=== PATIENT | male | born 1945 | race Caucasian/White ===

== ENCOUNTER 2018-06-07 16:30 | Inpatient (IN) | payer OTHER ==
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
[2018-06-07] MEDS ORDERED: NS 1,000 ML IV ONE (16:34)
[2018-06-07 16:47] LABS: PLATELET COUNT 166 10^3/uL (150-400)
[2018-06-07 17:11] LABS: INR 1.07 (0.83-1.16); PROTIME(PATIENT) 14.1 SEC (12.0-15.0)
[2018-06-07] MEDS ORDERED: ONDANSETRON 4 MG/2 ML VIAL IVP ONE ×2 (18:45→19:48)
[2018-06-07] MEDS ORDERED: ACETAMINOPHEN 325 MG TAB PO PRN (19:35)
[2018-06-07] MEDS ORDERED: traMADol 50 MG TAB PO PRN (19:39)
[2018-06-07] MEDS ORDERED: TDAP ADULT 0.5 ML INJ (BOOSTRIX) IM ONE (19:40)
--- NOTE | 2018-06-07 19:41 | GHP ---
DATE OF ADMISSION: 06/07/2018 CHIEF COMPLAINT: Left-sided head pain. HISTORY OF PRESENT ILLNESS: The patient is a 72-year-old gentleman who [place] when he was found down in the parking lot. When asked about the events, he said that he had no recollection of what happened. His was also at the bedside and said that earlier he had told her that he did recall falling, and then trying to get back up to his feet and then falling again. Apparently, the fall or falls were not witnessed by anyone. He does recall feeling light-headed and nauseated prior to falling. Per report, he was mildly confused when he arrived in the [facility] emergency department where I have now seen him. Currently, he is complaining of left-sided head pain, beginning behind his ear and traveling up to the back of his head, and he is also complaining of right shoulder and elbow pain and the inability to lift his arm off the bed. He continues to feel nauseated. He denies any other recent falls , head injuries, or weakness. He does report having some chronic right shoulder issues, and think he may have a rotator cuff problem on that side. He denies any neck pain. PAST MEDICAL HISTORY: 1. Mood disorder. 2. Osteoarthritis. PAST SURGICAL HISTORY: 1. Cholecystectomy. 2. Left total knee arthroplasty. 3. Right knee surgery. FAMILY HISTORY: His mother and brother have Crohn's disease. SOCIAL HISTORY: The patient is and lives at home with his . He admits to smoking 1 cigarette every 3-4 days; however, his reports that he smokes more frequently than this. He admits to drinking approximately 2 glasses of wine each night. He also admits to smoking marijuana occasionally, but no other recreational or illicit drugs. MEDICATIONS: Zoloft 100 mg PO daily. ALLERGIES: Sulfa. REVIEW OF SYSTEMS: GENERAL: He denies any feelings of malaise or illness, or any recent weight changes. HEAD: He denies any chronic headaches, or recent head trauma. EYES: He denies any blurry vision or double vision. EARS, NOSE, THROAT: Again, he is having pain behind his left ear. He has chronic tinnitus. He denies any hearing loss, epistaxis, rhinorrhea or sore throat. CHEST: He denies any chest pain, dyspnea on exertion, or swelling in his extremities. PULMONARY: He denies any cough, shortness of breath, or wheezing. GI: He has nausea as in HPI, but denies any vomiting, diarrhea, or abdominal pain. MUSCULOSKELETAL: He does have some osteoarthritis related joint pain. HEMATOLOGIC: He denies any easy bruising or bleeding or any fatigue. IMMUNOLOGIC: He denies any fevers or chills. ENDOCRINOLOGIC: He denies any recent weight changes, polydipsia, polyuria. He does state that he feels cold at the moment, but he does not normally have any temperature intolerance. NEUROLOGIC: He denies any weakness, numbness, seizures or other history of neurologic symptoms. PSYCHIATRIC: He denies depression. He does state he gets impatient, and that is the reason he takes Zoloft. PHYSICAL EXAMINATION: GENERAL: Patient is a well-developed, well-nourished gentleman, who is in no acute distress. VITAL SIGNS: Recorded in the emergency department, include temperature of 36.4 degrees Celsius, heart rate 57 beats per minute, respiratory rate 16 breaths per minute, blood pressure 151/ 76 mmHg. Oxygen saturation is 97% on room air. He weighs 79.4 kg. HEAD: Normocephalic. He has no visible outward signs of trauma to his head. He does have some tenderness to palpation along the left mastoid process and posterior parietooccipital scalp and does seem to have some swelling in that area as well. EYES: His conjunctivae are clear, his sclerae are nonicteric. His vision is grossly intact. EARS: He has no otorrhea or blood in his ears, and no outward signs of trauma. NOSE: He has no epistaxis or rhinorrhea. THROAT: His mucous membranes are moist. He has a small laceration on the left anterior tip of the tongue, but he denies pain there. NECK: He is wearing a cervical collar. He has no tenderness to palpation of the posterior cervical spine. CARDIOVASCULAR: He has mild sinus bradycardia. He has no edema in his extremities. PULMONARY: He has unlabored respirations and symmetric chest wall excursions. ABDOMEN: Soft, nontender, nondistended. MUSCULOSKELETAL: He has tenderness to palpation along his right glenohumeral joint. He has no outward signs of trauma in his right shoulder or any other extremities. NEUROLOGIC: He is awake, alert, and oriented to person, place, time and situation. He can correctly state his age and date. His Danae coma scale score is 15 out of 15. He has a fluent conversational speech and follows commands without difficulty. Cranial nerves: Pupils are equal, round, and reactive to light. Extraocular muscle movements are intact. Facial sensation and movements are full and symmetric. Hearing is grossly intact. Palate elevates symmetrically. Uvula cannot be clearly visualized. He has 5/5 strength in bilateral shoulder shrug and sternocleidomastoid. His tongue protrudes in the midline. Motor: He has normal tone and bulk. He has 5/5 strength in all tested muscle groups including left deltoids, bilateral biceps, bilateral triceps, bilateral wrist extensors, bilateral telegraphic typewriter operator chief, bilateral interossei, bilateral hip flexors, bilateral knee extensors, bilateral dorsiflexors, bilateral plantar flexors and bilateral extensor hallucis longus. The only exception is 2/5 strength in his right deltoid muscle with anterior arm raising; he has 5/5 strength in right deltoid with lateral arm raising. Sensation is grossly intact to light touch throughout his entire body, including arms, legs, and torso. Deep tendon reflexes: He has 2+/4 response in bilateral biceps, triceps, patellae, and Achilles. He has no clonus of the ankles, and Le sign is negative. Coordination: He has no tremor at rest or with active movements. DERMATOLOGIC: He has a laceration/abrasion on the skin overlying his right medial epicondyle. He does not have any rashes on his skin. DIAGNOSTIC DATA: Laboratory results: He has had CBC, BMP, and coagulation panel with mildly elevated glucose of 110; otherwise, all other values are normal. He also had a troponin-I level of 0.0. IMAGING: I have personally viewed images and read radiology report for CT of the head without contrast. I agree with the radiology impression including a nondisplaced skull fracture, that extends from the left skull base involving the left mastoid process and extending superiorly along the lambdoid suture into the left parietal bone. There are minimal spots of pneumocephalus in the left posterior fossa adjacent to the mastoid process, and there is also opacification of some of the mastoid air cells on the left side. There is hyperdense appearing subarachnoid hemorrhage of bilateral frontal lobes, more so on the left side, where the hemorrhage also extends into the sylvian fissure. There are no masses, infarcts, extraaxial hemorrhages, or shift. ASSESSMENT: Patient is a 72-year-old gentleman, who fell at least once or possibly twice today for unclear reasons. By report, he did have altered sensorium upon arrival to the emergency department; however, currently his cognitive function appears grossly intact. The rest of his neurological exam is unremarkable, with the exception of weakness of the right shoulder; however, he has tenderness to palpation along the joint and intact sensation and reflexes in the right arm, leading me to believe that this may be more of a musculoskeletal injury rather than neurological injury. CT scan of his head demonstrates acute subarachnoid hemorrhage of bifrontal lobes that is worse on the left side, and a left nondisplaced skull fracture that extends from the skull base to the skull vault. There are no operative indications for any of these injuries. I have discussed his injuries, prognosis, and plan with him and his . PLAN: He will be admitted to the step-down unit for neurological monitoring, including q.2 hourly vital signs and neurologic checks. He may resume normal diet as tolerated. His activity can be ad marvin with fall precautions. He will have a CT scan of his cervical spine performed in the emergency department prior to admission to exclude any fractures or other cervical spine injuries to explain his right shoulder weakness; however, he has no examination findings of cervical spine injury. Continue precautionary cervical collar until CT has been interpreted. We will continue his home dose of Zoloft. Will use PCDs or SCDs for VTE prophylaxis, but we will not use any chemo-prophylaxis due to acute intracranial hemorrhage. Will defer seizure prophylaxis at this time, as he is at low-risk for seizure. Internal medicine will be consulted for syncope evaluation. We will obtain Physical Therapy, Occupational Therapy, and Speech- Language Therapy evaluations tomorrow morning. Anticipate his hospital stay will span less than two midnights. /[id number]/MODL MTDD
[2018-06-07] MEDS ORDERED: HYDROmorphONE/DILAUDID 1 MG/ML INJ IVP ONE (19:48)
[2018-06-07] MEDS ORDERED: HYDROmorphONE/DILAUDID 1 MG/ML INJ ONE (19:50)
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
--- NOTE | 2018-06-07 21:03 | CPEKG ---
Test Reason : OPEN Blood Pressure : / mmHG Vent. Rate : 054 BPM Atrial Rate : 054 BPM P-R Int : 145 ms QRS Dur : 106 ms QT Int : 426 ms P-R-T Axes : 016 010 045 degrees QTc Int : 404 ms Sinus rhythm Atrial premature complex Low voltage, extremity leads Confirmed by Ralph Whelan ([id number]) on 06/07/2018 9:03:25 PM Referred By: Confirmed By:Ralph Whelan
[2018-06-07] MEDS: PROMETHAZINE HCL 25 MG/ML INJ IVP PRN (21:24)
[2018-06-07] MEDS: ONDANSETRON 4 MG/2 ML VIAL IVP PRN (23:45)
[2018-06-08] MEDS: ONDANSETRON 4 MG/2 ML VIAL IVP PRN ×2 (04:00→21:51)
--- NOTE | 2018-06-08 07:59 | NEUSURGPN ---
Assessment/Plan: 72 yo male with skull fracture into mastoid and bifrontal noncompressive tSAH - neuro stable - right shoulder pain, MRI shoulder results pending - C-collar cleared - repeat head CT only if clinically indicated - appreciate trauma following - ok to transfer to the floor - discharge to home once cleared by trauma/IM/ortho Discussed with Dr. Romero. Subjective: Mild headache this morning. No nausea/vomiting. Having right shoulder pain. Objective: Awake. Alert. PERRL. EOMI Facial expression symmetrical Tongue in midline Speech fluent Muscle strength full at 5/5 Sensation intact - Physician Discussed Patient with DrRaisa: Other Neurosurgery Physical Exam - Vitals, I&O, Labs I and O 06/07/18 06/08/18 06/09/18 05:59 05:59 05:59 Intake Total 1350 Output Total 325 Balance 1025 Weight 79.379 kg Intake: Oral (ml) 300 IV Infused (ml) 1050 Output: Urine (ml) 325 Urinal 325 Other: Intake Quantity Yes Sufficient Number of Stools Urinal 0 Vital Signs Temp Pulse Resp BP Pulse Ox 36.9 C 64 18 135/70 H 95 06/08/18 07:38 06/08/18 07:38 06/08/18 07:38 06/08/18 07:38 06/08/18 07:38 ICD10 Worksheet Patient Problems: Problems Problem Status Onset Skull fracture Acute Subarachnoid hemorrhage Acute Primary osteoarthritis of left knee Acute
[2018-06-08] MEDS: SERTRALINE HCL 100 MG TAB PO SCH (09:00)
[2018-06-08] MEDS: PROMETHAZINE HCL 25 MG/ML INJ IVP PRN ×2 (09:00→20:49)
--- NOTE | 2018-06-08 14:12 | SOAPPROG ---
RAMSES Progress Note Assessment/Plan: Assessment: right shoulder sprain with chronic rotator cuff tear Plan: I have reviewed the patient's mri. the features are consistent with a chronic rtc tear and deficiency. He has a large tear with proximal migration of the humeral head into a subacromial position. there is no acute fx, or edema along the rtc or bony insertion. There is no edema to suggest an acute process within the shoulder. I would recommend PT for mobility and strengthening as he tolerates. he may f/ u as an outpatient for evaluation and discussion of his rtc tear. I would initially treat this conservatively and only surgically if he fails. 06/08/18 14:08 Objective: Vital Signs Temp Pulse Resp BP Pulse Ox 36.9 C 64 18 135/70 H 95 06/08/18 07:38 06/08/18 07:38 06/08/18 07:38 06/08/18 07:38 06/08/18 07:38 06/07/18 06/08/18 06/09/18 05:59 05:59 05:59 Intake Total 1350 Output Total 325 Balance 1025 PT 14.1 SEC (12.0-15.0) 06/07/18 16:31 INR 1.07 (0.83-1.16) 06/07/18 16:31 ICD10 Worksheet Patient Problems: Problems Problem Status Onset Skull fracture Acute Subarachnoid hemorrhage Acute Primary osteoarthritis of left knee Acute
--- NOTE | 2018-06-08 14:13 | PDIAF ---
- Diagnosis Diagnosis: head injury, chronic right rtc tear Code Status: Full Code - Medication Management Discharge Medications: electronically signed and located in the Home Medication List. - Orders Additional Instructions: right shoulder rom as kuldeep wbat sling for comfort prn ice prn f/u upon discharge to [facility] [place] [facility]o call for appt - Follow Up Care Current Providers and Referrals: Angella Fraser MD [Primary Care Provider] - As per Instructions Wilman Morrell MD [Medical Doctor] -
[2018-06-08] MEDS ORDERED: BISACODYL 10 MG SUPP PR PRN (14:27)
[2018-06-08] MEDS ORDERED: MAGNESIUM HYDROXIDE 30 ML UDCUP PO PRN (14:27)
[2018-06-08] MEDS ORDERED: POLYETHYLENE GLYCOL 3350 17 GM PKT PO PRN (14:27)
[2018-06-08] MEDS ORDERED: LACTULOSE 20 GM/30 ML UDCUP PO PRN (14:27)
--- NOTE | 2018-06-08 15:21 | PDHOSCONS ---
History and Physical - Chief Complaint syncope x2 - History of Present Illness 72 yo male with h/o depression presented to ED via EMS after he was found down [place]. He was hitting some golf balls yesterday and began to feel nauseous and lightheaded. He decided to go home. As he was packing up his golf clubs, he passed out. He was able to rise to his feet, but his symptoms persisted and he passed out again near the curb. The golf club staff found him down and placed him on O2. He regained consciousness and was transported to the ED. He denied any preceding CP, SOB or heart palpitations. He also denies any alcohol or drug use prior to the event. He has remained chest pain free. He did travel from [place] in 04/2018. No prior h/o clots. He denies any cardiac history. 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 In the ED, CT of his head showed a skull fracture with b/l frontal lobe SAH. Neurosurgery was contacted and he was admitted to the ICU for further management. Medicine is consulted for further evaluation of his syncope. History Information - Allergies/Home Medication List Allergies/Adverse Reactions: Sulfa (Sulfonamide Antibiotics) Allergy (Severe, Verified 01/06/16 10:13) Swelling/neck,face,throat Home Medications: Sertraline HCl [Zoloft 50mg (*)] 100 mg PO DAILY 12/31/15 [Last Taken 06/07/18] I have personally reviewed and updated: family history, medical history, social history, surgical history - Past Medical History Additional medical history: Sleep apnea, intolerant of CPAP. Depression. Osteoarthritis - Surgical History Reports: cholecystectomy Additional surgical history: b/l knee surgery - Family History Additional family history: mom and brother with crohn's. no family h/o clotting disorder or DE - Social History Smoking Status: Current some day smoker (smokes 1-2 cigarettes a week) Tobacco Use: Other Alcohol Use: Other (daily, 2 drinks) Drug Use: None Additional social history: , at bedside. Lives independently, retired. Review of Systems Review of Systems: ROS: 10pt was reviewed & negative except for what was stated in HPI & below Physical Exam Physical Exam: Temp Pulse Resp BP Pulse Ox 36.9 C 64 18 135/70 H 95 06/08/18 07:38 06/08/18 07:38 06/08/18 07:38 06/08/18 07:38 06/08/18 07:38 O2 (L/minute) 2 Constitutional: no apparent distress Eyes: PERRL Ears, Nose, Mouth, Throat: moist mucous membranes Cardiovascular: regular rate and rhythym, no murmur, rub, or gallop, other (no carotid bruits) Respiratory: no respiratory distress, clear to auscultation Gastrointestinal: normoactive bowel sounds, soft, non-tender abdomen Skin: warm Musculoskeletal: other (RUE with decreased ROM 2/2 pain) Neurologic: AAOx3 Psychiatric: interacting appropriately Lab Data & Imaging Review 06/07/18 16:31 06/07/18 16:31 WBC 7.18 10^3/uL (3.80-9.50) 06/07/18 16:31 RBC 4.89 10^6/uL (4.40-6.38) 06/07/18 16:31 Hgb 15.8 g/dL (13.7-17.5) 06/07/18 16:31 Hct 44.2 % (40.0-51.0) 06/07/18 16:31 MCV 90.4 fL (81.5-99.8) 06/07/18 16:31 MCH 32.3 pg (27.9-34.1) 06/07/18 16:31 MCHC 35.7 g/dL (32.4-36.7) 06/07/18 16:31 RDW 13.4 % (11.5-15.2) 06/07/18 16:31 Plt Count 166 10^3/uL (150-400) 06/07/18 16:31 MPV 9.7 fL (8.7-11.7) 06/07/18 16:31 Neut % (Auto) 55.0 % (39.3-74.2) 06/07/18 16:31 Lymph % (Auto) 33.7 % (15.0-45.0) 06/07/18 16:31 Hamlin % (Auto) 7.5 % (4.5-13.0) 06/07/18 16:31 Eos % (Auto) 2.8 % (0.6-7.6) 06/07/18 16:31 Baso % (Auto) 0.4 % (0.3-1.7) 06/07/18 16:31 Nucleat RBC Rel Count 0.0 % (0.0-0.2) 06/07/18 16:31 Absolute Neuts (auto) 3.95 10^3/uL (1.70-6.50) 06/07/18 16:31 Absolute Lymphs (auto) 2.42 10^3/uL (1.00-3.00) 06/07/18 16:31 Absolute Monos (auto) 0.54 10^3/uL (0.30-0.80) 06/07/18 16: Absolute Eos (auto) 0.20 10^3/uL (0.03-0.40) 06/07/18 16:31 Absolute Basos (auto) 0.03 10^3/uL (0.02-0.10) 06/07/18 16: Absolute Nucleated RBC 0.00 10^3/uL (0-0.01) 06/07/18 16:31 Immature Gran % 0.6 % (0.0-1.1) 06/07/18 16: Immature Gran # 0.04 10^3/uL (0.00-0.10) 06/07/18 16:31 PT 14.1 SEC (12.0-15.0) 06/07/18 16:31 INR 1.07 (0.83-1.16) 06/07/18 16:31 APTT 25.1 SEC (23.0-38.0) 06/07/18 16:31 Sodium 142 mEq/L (135-145) 06/07/18 16:31 Potassium 4.4 mEq/L (3.5-5.2) 06/07/18 16:31 Chloride 109 mEq/L (97-110) 06/07/18 16:31 Carbon Dioxide 22 mEq/l (22-31) 06/07/18 16:31 Anion Gap 11 mEq/L (6-14) 06/07/18 16:31 BUN 21 mg/dL (7-23) 06/07/18 16:31 Creatinine 1.2 mg/dL (0.7-1.3) 06/07/18 16:31 Estimated GFR 60 06/07/18 16:31 Glucose 110 mg/dL (70-100) H 06/07/18 16:31 Calcium 9.9 mg/dL (8.5-10.4) 06/07/18 16:31 POC Troponin I 0.00 ng/mL (0.00-0.08) 06/07/18 16:41 Visualized and Interpreted EKG results: Yes EKG Interpretation: Positive for: normal sinsus rhythm, NS ST wave abnormalities Assessment & Plan Assessment: 72 yo male with h/o depression and LOLA presents to ED after 2 syncopal events, found to have SAH. Syncope - prodromal symptoms included nausea and lightheadedness. Some concern for cardiac arrhythmia, note mild bradycardia on admission EKG, though HR in the 60's on tele. Trop is negative, EKG non-ischemic, chest pain free. I do not detect carotid bruits and suspect carotid artery u/s would be low yield. -check orthostatic vitals -cont telemetry monitoring -check echo -check d dimer, if elevated proceed with CTA -recommend outpt cardiac event monitor if no etiology identified here Skull fracture with SAH b/l frontal lobes - neurosurgery following, no surgical intervention planned -neurochecks, fall precautions, PT/OT Rotator cuff injury - ortho evaluated and suspects this is chronic in nature with likely acute sprain from fall, recommends conservative therapy for now -sling for comfort -pain control -outpt f/u with ortho for consideration of surgical repair Depression - cont Zoloft LOLA - recommend outpt f/u with sleep medicine to re-consider / troubleshoot CPAP issues Full code DVT PPLX- no pharm with ICH, SCD's Thank you for this consultation. Medicine will continue to follow while inpt. Please call with questions.
[2018-06-08] MEDS: oxyCODONE IR 5 MG TAB PO PRN ×4 (15:25→21:52)
[2018-06-08] MEDS: SENNOSIDES/DOCUSATE SODIUM TAB PO SCH ×2 (15:26→20:50)
[2018-06-08] MEDS ORDERED: IOPAMIDOL (ISOVUE 370) 100 ML BTL IV ONE (16:05)
--- NOTE | 2018-06-08 16:08 | ECHO ---
[email or web address] [address] [address] Main: [phone] Fax: [email or web address] Echocardiogram Name: SANDEEP WEISS MR#: [id number] Study Date: 06/08/2018 Study Time: 03:18 PM Date of : 1945 Age: 72 year(s) Height: 177.8 cm (70 in.) Weight: 83.46 kg (184 lb.) BSA: 2.01 m2 Gender: Male Examination: Echo Indication: SAH, Cardiac: syncope Image Quality: Contrast: Requested by: Kirsten Hurley BP: 135 mmHg/70 mmHg Heart Rate: Rhythm: Normal sinus rhythm Indication: SAH, Cardiac: syncope Procedure Staff Crap Game Box Person: Ramirez Forbes RDCS Reading Physician: Amira Morrow MD Requesting Provider: Conclusions: Normal size left ventricle. No LV hypertrophy. Normal global systolic LV function. EF is 66 %. No regional wall motion abnormality. Normal size right ventricle. Normal RV function. Trivial to mild mitral regurgitation. Mild aortic valve regurgitation is present. Trivial tricuspid valve regurgitation. The pulmonary artery pressure is normal. No pericardial effusion. There is no previous echocardiogram for comparison. Measurements: Chambers Valvular Assessment AV/MV Valvular Assessment TV/PV Normal Normal Normal Name Value Range Name Value Range Name Value Range Ao Adela (MM): 3.7 cm (2.2 cm-3.7 AV Vmax: 1.37 m/s (1 m/s-1.7 TR Vmax: 2.35 mm/s ( - ) cm) m/s) TR PGmax: 22 mmHg ( - ) IVSd (2D): 0.9 cm (0.6 cm-1.1 AV maxP mmHg ( - ) syst. PAP: 27 mmHg ( - ) cm) AV meanP mmHg ( - ) PV Vmax: 0.87 m/s (0.6 m/s-0.9 LVDd (2D): 4.4 cm (4.2 cm-5.9 LVOT Vmax: 1.05 m/s (0.7 m/s-1.1 m/s) cm) m/s) PV PGmax: 3 mmHg ( - ) LVDs (2D): 2.8 cm (2.1 cm-4 JEFF (Vmax): 2.7 cm2 ( - ) cm) JEFF (VTI): 2.5 cm ( - ) LVPWd (2D): 1.0 cm (0.6 cm-1 AR (PHT): 794 ms ( - ) cm) MV E Vmax: 0.53 m/s ( - ) LVOTd 2.1 cm 2.1 cm mm MV A Vmax: 0.60 m/s ( - ) LVEF (2D): 66 (>=54 %) MV E/A: 0.88 ( - ) Patient: SANDEEP WEISS Study Date: 06/08/2018 Page 1 of 2 03:18 PM MV meanP mmHg ( - ) MVA (Vmax): 4.3 m/s ( - ) Continued Measurements: Chambers Valvular Assessment AV/MV Valvular Assessment TV/PV Name Value Name Value Name Value LADs Lon.0 cm MV E' Septal: 0.06 m/s CVP (est.): 5 mmHg LA Area: 18.3 cm2 MV E/E' Septal: 9.40 LA Volume: 49 ml MV E/E' Lateral: 5.40 LA Volume Index: 24.4 ml/m2 MV VTI: 15.80 cm AR Vmax: 4.32 cm/s AR ERO: 0.060 cm2 AR PISA radius: 0.4 cm AR Reg. Volume: 13.0 ml AR Reg. Fraction: 19 % AR VTI: 218.0 cm Findings: Left Ventricle: Normal size left ventricle. No LV hypertrophy. Normal global systolic LV function. EF is 66 %. No regional wall motion abnormality. Grade 1 diastolic dysfunction (abnormal relaxation). Right Ventricle: Normal size right ventricle. Normal RV function. Left Atrium: The left atrium is normal in size. Right Atrium: The right atrium is normal in size. Mitral Valve: The mitral valve is normal in appearance. Trivial to mild mitral regurgitation. Aortic Valve: The aortic valve is tri-leaflet. Mild aortic valve regurgitation is present. Tricuspid Valve: The tricuspid valve appears normal. Trivial tricuspid valve regurgitation. The pulmonary artery pressure is normal. Pulmonic Valve: The pulmonic valve is normal in appearance and function. Aorta: The aorta is normal. Pericardium: No pericardial effusion. Exam Comments: (No Signature Object) Patient: SANDEEP WEISS Study Date: 06/08/2018 Page 2 of 2 03:18 PM [id number]
[2018-06-08] MEDS: ACETAMINOPHEN 500 MG TAB PO SCH (17:17)
--- NOTE | 2018-06-08 17:27 | PDMN ---
Medical Necessity Medical necessity: Pt meets INPT criteria per MD as of 06/08/18 and [facility] (est. LOS >2 MN for ongoing eval/mgmt of skull fracture with SAH, syncopal events, rotator cuff injury; comorbid depression, LOAL).
--- NOTE | 2018-06-08 18:36 | TRAUMAPNT ---
Trauma Tertiary Progress Note New Findings: Right rotator cuff tear, partial tear of right elbow tendons. Discussed with Dr. Morrell. PT recommended & follow-up as an outpatient. Repeat CT head unchanged. CTA of chest demonstrates no pulmonary embolism Assessment/Plan: 72-year-old gentleman with unwitnessed fall or syncope with bilateral subarachnoid hemorrhage nondisplaced skull fracture. Patient also has ligamentous injuries of his right shoulder and elbow. Admitted to Neurosurgery at this time with internal medicine consultation. Orthopedic consultation by Dr. Morrell suggest non operative care of acute on chronic ligamentous injury to his shoulder. PT and follow up as an outpatient recommended No new injuries detected on further imaging or clinical exam Alert oriented to person place and time Amnestic to event Regular rate and rhythm Clear to auscultation Abdomen soft nontender nondistended Good database management specialist strength right upper extremity. Shoulder in a sling for comfort. Reports of loss of sensation earlier. Now says this is less of an issue. No significant multi-system injuries noted at this time will continue medicine workup for syncope and neurosurgery monitoring for neurologic changes from his bilateral subarachnoid hemorrhage left greater than right. Trauma surgery will sign off at this time call with any concerns regarding involving trauma issues Objective: Vital Signs Temp Pulse Resp BP Pulse Ox 36.9 C 63 18 117/74 93 06/08/18 16:00 06/08/18 16:00 06/08/18 16:00 06/08/18 16:00 06/08/18 16:00 06/07/18 06/08/18 06/09/18 05:59 05:59 05:59 Intake Total 2100 Balance 2100 PT 14.1 SEC (12.0-15.0) 06/07/18 16:31 INR 1.07 (0.83-1.16) 06/07/18 16:31
[2018-06-08] MEDS ORDERED: SENNOSIDES/DOCUSATE SODIUM TAB PO SCH (21:00)
[2018-06-09] MEDS: ACETAMINOPHEN 500 MG TAB PO SCH ×2 (02:08→07:56)
[2018-06-09] MEDS: oxyCODONE IR 5 MG TAB PO PRN ×3 (06:28→13:11)
[2018-06-09] MEDS: SERTRALINE HCL 100 MG TAB PO SCH (07:57)
[2018-06-09] MEDS: SENNOSIDES/DOCUSATE SODIUM TAB PO SCH (07:57)
[2018-06-09] MEDS: PROMETHAZINE HCL 25 MG/ML INJ IVP PRN (07:58)
--- NOTE | 2018-06-09 08:28 | SOAPPROG ---
RAMSES Progress Note Assessment/Plan: Assessment: right shoulder sprain with chronic rotator cuff tear right elbow sprain with chronic common extensor and flexor tendonitis Plan: additionally, i have reviewed mri of his elbow as well which also demonstrates an acute sprain on top of chronic injuries. he may use his elbow as tolerated. in light of his acute head injuries, no acute surgical intervention is recommended for either his shoulder or his elbow. I will speak with the patient later today and discuss this. He will be recommended to f/u outpatient for a trial of conservative PT initially. If he fails this he may become a surgical candidate. 06/08/18 14:08 06/09/18 08:25 Objective: Vital Signs Temp Pulse Resp BP Pulse Ox 36.6 C 56 L 14 129/70 H 97 06/09/18 04:00 06/09/18 04:00 06/09/18 04:00 06/09/18 04:00 06/09/18 04:00 06/08/18 06/09/18 06/10/18 05:59 05:59 05:59 Intake Total 2100 Balance 2100 PT 14.1 SEC (12.0-15.0) 06/07/18 16:31 INR 1.07 (0.83-1.16) 06/07/18 16:31 ICD10 Worksheet Patient Problems: Problems Problem Status Onset Skull fracture Acute Subarachnoid hemorrhage Acute Primary osteoarthritis of left knee Acute
[2018-06-09 08:54] VITALS: BP 124/67
--- NOTE | 2018-06-09 09:47 | SOAPPROG ---
SOAP Progress Note Assessment/Plan: Assessment: 72 yo M with tsah and mastoid fx after fall Plan: stable, headaches improving Q4 hour neuro checks PT/OT/ST Hospitalists working up syncope right shoulder injury, fu with Dr Morrell as outpatient ok to transfer to floor or dc if cleared by Trauma, Ortho and Hospitalists please call with neuro changes 06/09/18 09:45 Subjective: mild headache, no N/V. No weakness. Objective: Vital Signs Temp Pulse Resp BP Pulse Ox 36.7 C 56 L 15 124/67 H 94 06/09/18 08:00 06/09/18 04:00 06/09/18 08:00 06/09/18 08:00 06/09/18 08:00 06/08/18 06/09/18 06/10/18 05:59 05:59 05:59 Intake Total 2100 Balance 2100 PT 14.1 SEC (12.0-15.0) 06/07/18 16:31 INR 1.07 (0.83-1.16) 06/07/18 16:31 AAOx4, +FC PERRL, EOMI, no facial droop 5/5 + light touch ICD10 Worksheet Patient Problems: Problems Problem Status Onset Skull fracture Acute Subarachnoid hemorrhage Acute Primary osteoarthritis of left knee Acute
--- NOTE | 2018-06-09 10:12 | ASMTCMCOM ---
CM Note CM Note Notes: Patient had an unwitnessed fall or syncope that resulted in bilateral SAH and non-displaced skull fx. Also suffered tears of R rotator cuff and elbow tendons. Ortho and neuro have seen - no surgery recommended. Outpatient therapy recommended. Patient lives with and is normally independent. Case Management will follow for any d/c needs. Date Signed: 06/09/2018 10:12 AM Electronically Signed By:Theresa Owusu RN
--- NOTE | 2018-06-09 13:05 | GDS ---
DIAGNOSES: 1. Subarachnoid hemorrhage and mastoid fracture after fall. Follow up with Neurosurgery per their recommendations. 2. Shoulder injury, status post fall. He will follow up as an outpatient with Dr. Morrell and do a trial of conservative physical therapy initially. 3. Syncope versus mechanical fall. CONSULTATIONS: Include Neurosurgery, Orthopedics, Trauma, Cardiology. PROCEDURES: 1. Head computed tomography. Acute nondisplaced left skull base fracture, minimal pneumocephalus, subarachnoid hemorrhage along bilateral frontal lobes. 2. Cervical spine computed tomography. No acute cervical spine fracture. Multilevel degenerative joint disease. 3. Upper extremity magnetic resonance imaging. 4. Chest and thoracic computed tomography angiogram which shows no pulmonary embolism. 5. Echocardiogram showing no significant abnormalities. HOSPITAL COURSE: Mr. Jasso is a very healthy 72-year-old man who was playing golf/hitting golf balls at the driving range with his grandchildren. He said he had not been feeling ill, and was out there for 1-2 hours with his grandkids when he started to feel a little bit nauseous. He got in the golf cart, drove back to his car, put the golf clubs away and was in the process of driving the golf cart back to the facility when he fell out of the golf cart and sustained injuries to his head and shoulder. He thinks he may have hit the curb or something and gotten thrown out of the golf cart; however, it is unclear. They were able to wake him up, and he got up, tried to get back in the golf cart and fell again at which point he was transported to the emergency department for further evaluation and the above procedures. Regarding his subarachnoid hemorrhage, he was seen by neurosurgery, Dr. Browne, who felt that this could be monitored. He was monitored closely in the intensive care unit and will follow up with Neurosurgery as an outpatient without further surgical intervention. He also sustained a shoulder injury, had an upper extremity MRI done, and was seen by Dr. Morrell who will follow up with him as an outpatient. Regarding his fall/syncope, it is of unclear etiology. I did have Cardiology see the patient prior to discharge just to review the testing done, his EKG and telemetry, and at this point they would like to complete his workup with an outpatient Holter/event monitor. That has been set up at [facility] on Monday. In the meantime, the patient will need a few oxycodone for headache pain and shoulder pain. He is to follow up with his primary care provider next week. MEDICATIONS ON DISCHARGE: Please see med reconciliation form. He will continue his sertraline and was given a small supply of oxycodone for pain. PLAN: He is to follow up with Dr. Morrell, with Dr. Angella Fraser, Dr. Ralph Layne. 35 minutes spent on discharge and coordination of care. /[id number]/MODL MTDD
--- NOTE | 2018-06-10 00:18 | GCON ---
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 HISTORY OF PRESENT ILLNESS: Thom was in his usual state of health when he experienced sudden onset of nausea and diaphoresis in the midst of golfing . He immediately made the decision to head home at that time, but he reports running into a curb or other object while driving the golf cart. He reports feeling notably drowsy and "fell" from the golf cart per his recollection. He remembers awaking to find several people around him and oxygen on his face. He denies any symptoms aside from nausea and drowsiness preceding this event. His notes that he has had frequent episodes of sudden onset of brief, intense nausea and diaphoresis over the past several months; he describes these episodes as feeling "off kilter". Episodes are occasionally triggered by nicotine and symptoms are improved by laying down for about 60 minutes. He otherwise denies any chest discomfort, dyspnea, orthopnea, lightheadedness, or presyncope, however, his notes that he does regularly appear to be lightheaded, especially after having a cigarette. Echocardiogram is unremarkable and telemetry demonstrates sinus bradycardia this admission. REVIEW OF SYSTEMS: A 10-point review of systems is performed, notable for that which is outlined above. Additionally, he has trauma to his right arm with a sling in place. He also describes a persistent headache and mild fatigue this morning. ALLERGIES: Sulfa. PAST MEDICAL HISTORY: 1. Mood disorder. 2. Osteoarthritis. PAST SURGICAL HISTORY: 1. Cholecystectomy. 2. Left knee arthroplasty. 3. Right knee surgery. SOCIAL HISTORY: The patient is and lives at home with his . He admits to smoking cigarettes infrequently, 3-4 times per week. He admits to drinking 2-3 glasses of wine per night, although his notes that he has recently consumed more alcohol in the setting of recent psychosocial distress. He also admits to smoking marijuana infrequently. MEDICATIONS: Zoloft 100 mg p.o. daily. PHYSICAL EXAMINATION: GENERAL: Patient is alert and oriented without apparent distress. VITAL SIGNS: Heart rate 56, blood pressure 124/67, SpO2 94% on room air, temp 36.7. RESPIRATORY: Lungs are clear to auscultation without adventitious breath sounds. CARDIOVASCULAR: Normal S1, S2 without audible S3, S4, murmurs, gallops, or rubs. No lower extremity edema. ABDOMEN: Soft and nontender, normoactive bowel sounds times all 4 quadrants. MUSCULOSKELETAL: Right arm with a sling in place. He was ambulating around his room this morning without issue. LABORATORY STUDIES: Drawn today: CBC and BMP have been normal. Negative troponin. D-dimer 6.2. ASSESSMENT AND PLAN: The patient is a pleasant 72-year-old male with a history of syncope vs. mechanical fall x2 on June 07, 2018 resulting in injury including skull fracture and subarachnoid hemorrhage. Episode was preceded by sudden onset of nausea, diaphoresis 5 minutes before the event and drowsiness immediately prior. He denies any prior history of syncope or pre-syncope, although he is a somewhat difficult historian. Upon further questioning, he does note that he has experienced frequent episodes of feeling "off kilter." His describes these episodes in further detail, noting the patient will describe sudden onset of nausea and diaphoresis. When he lies down, these episodes resolve quickly. No prior history of arrhythmia or palpitations, although he describes symptoms that are somewhat concerning for a potential arrhythmia. We recommend a 1 month monitor and followup visit with our electrophysiology clinic in 6 weeks. He has been advised that he is not permitted to drive until his upcoming followup visit with our electrophysiology team. He and his verbalized understanding regarding these recommendations. He will contact our clinic with any new or concerning symptoms in the meantime. /[id number]/MODL MTDD
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
--- NOTE | 2018-06-13 23:02 | CPEKG ---
Test Reason : OPEN Blood Pressure : / mmHG Vent. Rate : 042 BPM Atrial Rate : 043 BPM P-R Int : 148 ms QRS Dur : 108 ms QT Int : 472 ms P-R-T Axes : 045 007 040 degrees QTc Int : 395 ms Sinus bradycardia Confirmed by Derrick Shirley ([id number]) on 06/13/2018 11:02:00 PM Referred By: Confirmed By:Derrick Shirley
== END 2018-06-09 13:20 | disposition home or self-care (01) | DRG 84 ==
LOC: EDUNIT# → F2N 21:03 → OBSVTOIN 06-08 17:00
PROVIDERS: ADMIT Neurological Surgery; ATTEND Neurological Surgery
DX: S06.6X9A Traumatic subarachnoid hemorrhage with loss of consciousness of unspecified duration, initial encounter (principal); S02.102A Fracture of base of skull, left side, initial encounter for closed fracture; S43.421A Sprain of right rotator cuff capsule, initial encounter; V86.59XA Driver of other special all-terrain or other off-road motor vehicle injured in nontraffic accident, initial encounter; Y92.481 Parking lot as the place of occurrence of the external cause; R55 Syncope and collapse; F32.9 Major depressive disorder, single episode, unspecified; G47.33 Obstructive sleep apnea (adult) (pediatric); Z72.0 Tobacco use
CPT/HCPCS: 84484-ER; 92523-GN; 96374; 97116-GP; 97162-GP; 97166-GO; 97535-GO; G0378; G0515-GO; J1170; J2270; J2405; J2550; Q9967

== ENCOUNTER 2018-06-11 09:49 | Inpatient (IN) | payer OTHER ==
[2018-06-11] MEDS ORDERED: PROMETHAZINE HCL 25 MG/ML INJ ONE (10:56)
[2018-06-11] MEDS ORDERED: NS 1,000 ML IV ONE (10:59)
[2018-06-11] MEDS ORDERED: PROMETHAZINE HCL 25 MG/ML INJ IVP ONE (10:59)
--- NOTE | 2018-06-11 11:44 | EDPHY ---
H & P Stated Complaint: HEAD TRAUMA IN ICU UNTIL MONDAY /PAZ/NAUSEA Time Seen by Provider: 06/11/18 11:17 HPI/ROS: CHIEF COMPLAINT: Severe headache HISTORY OF PRESENT ILLNESS: 72-year-old male presents with a severe headache. He was discharged from the hospital 2 days ago after admission for intracranial hemorrhage, skull fracture and syncopal episode. He was discharged home on oxycodone and Phenergan. Since discharge, he has had no relief in headache. The headache has become increasingly severe and is associated with nausea. Unable to sleep last night because of headache. Taking oxycodone 10 mg every 4 hr. REVIEW OF SYSTEMS: complete 10 point ROS reviewed and is negative except for the noted elements in the HPI - Personal History Current Tetanus Diphtheria and Acellular Pertussis (TDAP): Yes - Medical/Surgical History Hx Asthma: No Hx Chronic Respiratory Disease: No Hx Diabetes: No Hx Cardiac Disease: No Hx Renal Disease: No Hx Cirrhosis: No Hx Alcoholism: No Hx HIV/AIDS: No Hx Splenectomy or Spleen Trauma: No Other PMH: depression, cholecystectomy, L knee arthoplasty SKULL FX - Social History Smoking Status: Current some day smoker - Physical Exam Exam: General Appearance: Alert, pleasant and talkative Eyes: Pupils equal and round, no conjunctival pallor or injection, pupils 2 mm and equal ENT, Mouth: Mucous membranes moist Neck: Normal inspection Respiratory: Lungs are clear to auscultation Cardiovascular: Regular rate and rhythm Gastrointestinal: Abdomen is soft and nontender Neurological: Alert, oriented x3, cranial nerves II through XII intact, motor 5 /5, sensory intact to light touch Skin: Warm and dry Extremities: Normal inspection Psychiatric: Mood and affect normal Constitutional: Initial Vital Signs Temperature (C) 36.5 C 06/11/18 09:58 Heart Rate 65 06/11/18 09:58 Respiratory Rate 18 06/11/18 09:58 Blood Pressure 157/67 H 06/11/18 09:58 O2 Sat (%) 97 06/11/18 09:58 O2 Delivery Mode Room Air Allergies/Adverse Reactions: Sulfa (Sulfonamide Antibiotics) Allergy (Severe, Verified 06/11/18 09:57) Swelling/neck,face,throat Home Medications: Medication Instructions Recorded oxyCODONE HCL [Oxycodone HCl] 5 - 10 mg PO Q6 #18 tablet 06/09/18 ALPRAZolam [Xanax 0.25 MG (*)] 0.25 mg PO BID PRN 06/11/18 Promethazine HCl [Phenergan 25mg 25 mg PO Q6HRS PRN 06/11/18 (*)] Sertraline HCl [Zoloft 100mg (*)] 100 mg PO DAILY 06/11/18 Zolpidem Tartrate 10 mg PO HS PRN 06/11/18 Medical Decision Making - Diagnostics Imaging Results: Imaging Impressions Head CT 06/11/18 10:04 Impression: 1. Stable appearance involving the nondisplaced fracture at the left skull base , extending along the lambdoid suture and into the left parietal bone with trace amount of fluid still noted in the inferior mastoids. 2. Stable appearance of an anterior left cranial fossa intraparenchymal hemorrhage with equivocally more pronounced vasogenic edema. 3. Stable tiny right subfrontal parenchymal hemorrhage with vasogenic edema, seen retrospectively and relatively unchanged. 4. Apparent resolution of previous subtle parietal subarachnoid hemorrhage, with no new intracranial hemorrhage or other mass effect observed. If there is further clinical concern regarding the patient's symptoms, MR imaging is suggested, if not otherwise contraindicated. Findings were discussed with Malika Gregory PA-C who will convey the information to GARO CÁRDENAS MD at 11:08, on 06/11/2018. Imaging: Discussed imaging studies w/ fisher scallop Radiologist ED Course/Re-evaluation: This patient presents with severe headache after recent intracranial hemorrhage and skull fracture. CT scan of the brain reveals stable appearance of the intracranial hemorrhage and possibly increased intracranial edema. Morphine and Phenergan IV given for pain and nausea control. Discussion with the patient and his family. They feel that he should be admitted for pain control and I agree. Hospitalist service was consulted for admission. Consulted Dr. Snow, will see patient in hospital. This patient was stable throughout his emergency department stay. He required multiple doses of IV narcotics for pain control. Differential Diagnosis: Headache including but not limited to increased intracranial hemorrhage, subarachnoid hemorrhage, migraine headache, tension headache and infectious causes such as meningitis, pharyngitis and sinusitis. - Data Points Medications Given: Discontinued Medications Hydromorphone HCl (Dilaudid) 0.5 mg IVP EDNOW ONE Stop: 06/11/18 12:13 Last Admin: 06/11/18 12:18 Dose: 0.5 mg Sodium Chloride (Ns) 1,000 mls @ 0 mls/hr IV EDNOW ONE; Wide Open PRN Reason: Protocol Stop: 06/11/18 11:00 Last Admin: 06/11/18 11:04 Dose: 1,000 mls Morphine Sulfate (Morphine) 4 mg IVP EDNOW ONE Stop: 06/11/18 11:00 Last Admin: 06/11/18 11:04 Dose: 4 mg Promethazine HCl (Phenergan) 12.5 mg IVP EDNOW ONE Stop: 06/11/18 11:00 Last Admin: 06/11/18 11:02 Dose: 12.5 mg Departure - Departure Disposition: [facility] Acute Clinical Impression: Severe headache Condition: Fair
[2018-06-11] MEDS ORDERED: HYDROmorphONE/DILAUDID 2 MG/ML INJ IVP ONE (12:12)
[2018-06-11] MEDS ORDERED: HYDROCODONE/APAP 5/325 TAB PO PRN (12:32)
[2018-06-11] MEDS: HYDROmorphONE/DILAUDID 1 MG/ML INJ IVP PRN ×2 (16:39→22:23)
[2018-06-11] MEDS: PROMETHAZINE HCL 25 MG/ML INJ IVP PRN ×2 (16:40→22:23)
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
[2018-06-11] MEDS: ACETAMINOPHEN 325 MG TAB PO PRN (19:53)
--- NOTE | 2018-06-11 21:09 | HOSPPROG ---
Hospitalist Progress Note Assessment/Plan: episodes bradyc ardia to 20's, sinus, w 2.5 sec pause. HD stable, head bleed not worse on imaging, alert and conversant. this is sinus bradycardia, not melvi reflex. needs pacer discussed w cardiology who will see in AM npo p mn Objective: Vital Signs Temp Pulse Resp BP Pulse Ox 36.6 C 46 L 14 152/79 H 94 06/11/18 20:00 06/11/18 20:00 06/11/18 20:00 06/11/18 20:00 06/11/18 20:00 06/10/18 06/11/18 06/12/18 05:59 05:59 05:59 Intake Total 1000 Output Total 300 Balance 700 ICD10 Worksheet Patient Problems: Problems Problem Status Onset Severe headache Acute Primary osteoarthritis of left knee Acute Skull fracture Acute Subarachnoid hemorrhage Acute
[2018-06-12] MEDS: HYDROmorphONE/DILAUDID 1 MG/ML INJ IVP PRN ×8 (01:13→20:49)
[2018-06-12] MEDS ORDERED: ONDANSETRON 4 MG/2 ML VIAL IVP ONE (02:20)
[2018-06-12] MEDS: PROMETHAZINE HCL 25 MG/ML INJ IVP PRN ×4 (04:27→22:03)
[2018-06-12 06:30] LABS: PLATELET COUNT 177 10^3/uL (150-400)
[2018-06-12 06:36] LABS: INR 1.1 (0.83-1.16); PROTIME(PATIENT) 14.4 SEC (12.0-15.0)
--- NOTE | 2018-06-12 07:16 | SOAPPROG ---
SOAP Progress Note Assessment/Plan: Assessment: 72 yo male s/p ground level fall on 06/07 readmitted with post concussive symptoms and dehydration with ongoing nausea and headaches. Known skull fracture Neuro intact and stable Having episodes of bradycardia. Plan: CPM in ICU with rehydration and management per Medicine team. Cardiology to eval for possible pacemaker. Discussed with Dr. Romero 06/12/18 07:13 06/12/18 07:16 Subjective: lying in bed, appears comfortable but complains of ongoing left sided facial and bifrontal PAZ and nausua. Denies numbness, tingling or weakness. Objective: Vital Signs Temp Pulse Resp BP Pulse Ox 36.8 C 54 L 16 130/60 H 95 06/12/18 04:00 06/12/18 04:00 06/12/18 04:00 06/12/18 04:00 06/12/18 04:00 Laboratory Results 06/12/18 06:10 06/12/18 06:18 06/11/18 06/12/18 06/13/18 05:59 05:59 05:59 Intake Total 1250 Output Total 650 Balance 600 PT 14.4 SEC (12.0-15.0) 06/12/18 06:10 INR 1.10 (0.83-1.16) 06/12/18 06:10 neuro: STEIN, sens +LT follows commands speech clear, EOMI equal bilat upper ext strength ICD10 Worksheet Patient Problems: Problems Problem Status Onset Severe headache Acute Primary osteoarthritis of left knee Acute Skull fracture Acute Subarachnoid hemorrhage Acute
[2018-06-12] MEDS: SCOPOLAMINE HYDROBROMIDE 1 MG/3 DAYS PATCH TD SCH (08:54)
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
[2018-06-12] MEDS: ACET/CAFFEINE/BUTA FIORICET 1 EACH TAB PO PRN ×2 (11:06→18:52)
[2018-06-12] MEDS: SERTRALINE HCL 100 MG TAB PO SCH (11:06)
[2018-06-12] MEDS ORDERED: BACITRACIN IRRIGATION/NS 50,000 UNITS/1,000 ML BTL IRR ONE (14:33)
[2018-06-12] MEDS ORDERED: DIAZEPAM 5 MG TAB PO ONE (14:33)
[2018-06-12] MEDS ORDERED: diphenhydrAMINE 25 MG CAP PO ONE (14:33)
[2018-06-12] MEDS ORDERED: NS 1,000 ML IV ONE (14:33)
[2018-06-12] MEDS ORDERED: ceFAZolin 2 GM/DEXTROSE 100 ML IV ONE (14:33)
[2018-06-12] MEDS ORDERED: LIDOCAINE 1% 300 MG/30 ML SDV ONE (14:48)
[2018-06-12] MEDS ORDERED: IOPAMIDOL (ISOVUE-300) 50 ML VIAL ONE (14:48)
[2018-06-12] MEDS ORDERED: MIDAZOLAM 2 MG/2 ML VIAL ONE (14:49)
[2018-06-12] MEDS ORDERED: BUPIVACAINE 0.5% 30 ML SDV ONE (14:49)
[2018-06-12] MEDS ORDERED: LIDO/EPI 1% **for epidural** 30 ML SDV ONE (14:49)
[2018-06-12] MEDS ORDERED: fentaNYL 100 MCG/2 ML INJ ONE (14:49)
--- NOTE | 2018-06-12 15:56 | CPEKG ---
Test Reason : OPEN Blood Pressure : / mmHG Vent. Rate : 049 BPM Atrial Rate : 049 BPM P-R Int : 147 ms QRS Dur : 106 ms QT Int : 470 ms P-R-T Axes : 053 011 048 degrees QTc Int : 425 ms Sinus bradycardia Confirmed by Derrick Shirley ([id number]) on 06/12/2018 3:55:56 PM Referred By: Confirmed By:Derrick Shirley
--- NOTE | 2018-06-12 16:32 | ASMTCASEMG ---
Living Arrangements What is your living Answers: With Spouse arrangement? Who do you live with? Type Of Residence What kind of residence do Answers: House you live in? Discharge Plan Comments Coordination Status Comments Notes: Patient is a 72yo male who was recently admitted to [facility] for a left skull based fracture. He was discharged on 06/09/18 but over the past 48 hours he developed significant headache with nausea. Patient is being admitted for telemetry monitoring and further care. 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 D/C plan TBD. Likely, patient will discharge independently. CM will follow. Date Signed: 06/12/2018 04:31 PM Electronically Signed By:Kate Hassan LCSW
--- NOTE | 2018-06-12 16:38 | PDPROPOC ---
Sedation Plan of Care Sedation Plan of Care: vital signs stable, mental status noted, patient educated of risks, benefits, alternatives, patient can tolerate sedation ASA Classification: ASA 4 Planned drugs: fentanyl, midazolam Mallampati Score: Class 3 Mallampati Reference Image: Patient passed 3-3-2 rule?: Yes
--- NOTE | 2018-06-12 16:40 | PDHPUP ---
History & Physical Update H&P update statement: This history and physical update is based on an assessment of the patient which was completed after admission or registration (within 24 hours), but prior to the surgery/procedure. H&P update: H&P reviewed & patient examined, no change in patient's condition since H&P completed (intermittent bradycardia)
[2018-06-12] MEDS ORDERED: ETOMIDATE 40 MG/20 ML INJ ONE (17:28)
--- NOTE | 2018-06-12 18:48 | EPPROC ---
Electrophysiology Procedure Note: PROCEDURE: 1. MRI conditional dual-chamber pacemaker insertion. DATE OF PROCEDURE: 06/12/2018 DEVICE: Biotronik Edora 8 DR-T Model #[id number] , Serial #[id number] LEADS: The atrial lead is a Solia S 45: Model #[id number], Serial # [id number] The ventricular lead is a Solia S 53: model #[id number], Serial #[id number] COMPLICATIONS: None SENIOR CHEMICAL ENGINEER: Cristian Stapleton MD INDICATION AND APPROPRIATE USE CRITERIA: Profound bradycardia and hemodynamically significant bradycardia and symptomatic sick sinus syndrome PROCEDURE IN DETAIL: After informed consent was obtained and n.p.o. status was confirmed, the region of the left subclavicular fossa was cleaned, prepped and draped in a sterile fashion. Approximately 30 mL of 1% lidocaine was utilized for local anesthesia. The skin was sharply incised with a #10 blade. Electrocautery and local pressure were used for hemostasis. Sharp and blunt dissection was used to form a pacemaker pocket overlying the pectoralis major fascia. An 18-gauge Cook needle was used to gain access to the left subclavian vein x 2. J wires were advanced into the inferior vena cava under direct flouroscopic guidance. A 6-F peel-away sheath was advanced over the lateral wire. Wire and stylet were removed. The ventricular lead was manipulated with care into the RV apex under direct fluoroscopic guidance and screwed into place. The threshold was tested and found to be 0.6 V at 0.4 ms width. R-wave amplitude was measured at 9.20 mV. Lead impedance was 643 Ohms. The lead was sutured in place with #0 Ethibond. The medial wire was used to place a second peel-away sheath wire and dilator was removed and a second pacer lead was manipulated with care into the right atrial appendage and screwed into place. The threshold was 0.7 V at 0.4 ms width. P-wave amplitude was 2.10 mV, lead impedance was 487 Ohms. The peel away sheaths were removed and the leads were sutured in place with a #0 Ethibond. The pocket was thoroughly flushed and checked for bleeding. Hemostasis was established. The antibiotic soaked gauze was removed from the pocket. The atrial lead serial number was checked and placed in the upper pole lead housing of the pulse generator and set screw firmly applied. The procedure was repeated for the RV lead in the lower pole lead housing. The device was placed in the pocket and sutured in place with #0 Silk. The skin was closed with a 3-layered 3 -0 Vicryl vertical mattress interrupted suture, 2-0 Vicryl horizontal mattress interrupted suture, and an interrupted staple repair with excellent wound edge opposition and hemostasis documented. The patient returned to the post cath recovery unit in good and stable condition where a stat postoperative chest x- ray and EKG will be obtained. FINAL IMPRESSION: Successful dual-chamber pacemaker insertion without immediate complication for indication of syncope with symptomatic intermittent bradycardia. Patient Problems: Problems Problem Status Onset Primary osteoarthritis of left knee Acute Subarachnoid hemorrhage Acute Skull fracture Acute Severe headache Acute
[2018-06-12] MEDS ORDERED: hydrALAZINE 25 MG TAB PO PRN (19:34)
--- NOTE | 2018-06-12 22:29 | PDMN ---
Medical Necessity Medical necessity: Pt meets IP criteria as of 06/12/18 per and [facility] ( Cardiology [facility]); los > 2 mn for ongoing tx and evaluation of symptomatic bradycardia (HR 20's) as well as headache s/p recent admission for subarachnoid hemorrhage; requiring cardiology consultation with possible intervention, cardiac monitoring, and pain control.
[2018-06-13] MEDS: ACET/CAFFEINE/BUTA FIORICET 1 EACH TAB PO PRN ×4 (00:55→16:57)
[2018-06-13] MEDS: ACETAMINOPHEN 325 MG TAB PO PRN ×4 (00:55→12:03)
[2018-06-13] MEDS: NS 1,000 ML IV SCH ×2 (02:03→12:23)
[2018-06-13] MEDS: PROMETHAZINE HCL 25 MG/ML INJ IVP PRN ×2 (04:17→15:24)
--- NOTE | 2018-06-13 07:44 | SOAPPROG ---
SOAP Progress Note Assessment/Plan: Assessment: 72 yo M sp syncope with traumatic SAH and small bifrontal contusions Plan: neuro: stable, continued post concussive symptoms, no evidence of csf rhinorrhea or otorrhea PT/OT/ST sp pacemaker placement for symptomatic bradycardia ok to switch to po meds no further imaging of brain needed unless condition changes follow up with Dr Romero in 4 weeks, to schedule appointment please call with neuro changes discussed with Dr Castillo 06/13/18 07:41 Subjective: continued headaches, nausea worse when up, no emesis, no drainage from ears/nose Objective: Vital Signs Temp Pulse Resp BP Pulse Ox 36.8 C 66 13 147/76 H 97 06/13/18 04:00 06/13/18 04:00 06/13/18 04:00 06/13/18 04:00 06/13/18 04:00 06/12/18 06/13/18 06/14/18 05:59 05:59 05:59 Intake Total 1826 Output Total 825 Balance 1001 PT 14.4 SEC (12.0-15.0) 06/12/18 06:10 INR 1.10 (0.83-1.16) 06/12/18 06:10 AAOx4, +FC PERRL, EOMI, no facial droop HOLLEY x 4 + light touch ICD10 Worksheet Patient Problems: Problems Problem Status Onset Severe headache Acute Primary osteoarthritis of left knee Acute Skull fracture Acute Subarachnoid hemorrhage Acute
[2018-06-13] MEDS: SERTRALINE HCL 100 MG TAB PO SCH (08:02)
[2018-06-13] MEDS ORDERED: FAMOTIDINE 20 MG in NS 100 ML IV ONE (09:16)
--- NOTE | 2018-06-13 09:53 | CPEKG ---
Test Reason : OPEN Blood Pressure : / mmHG Vent. Rate : 063 BPM Atrial Rate : 063 BPM P-R Int : 163 ms QRS Dur : 108 ms QT Int : 426 ms P-R-T Axes : 056 -17 043 degrees QTc Int : 437 ms Atrial-paced rhythm Confirmed by Derrick Shirley ([id number]) on 06/13/2018 9:53:20 AM Referred By: Confirmed By:Derrick Shirley
[2018-06-13] MEDS ORDERED: LACTULOSE 20 GM/30 ML UDCUP PO PRN (09:55)
[2018-06-13] MEDS ORDERED: BISACODYL 10 MG SUPP PR PRN (09:55)
[2018-06-13] MEDS ORDERED: DIHYDROERGOTAMINE 1 MG/ML AMP IVP ONE (09:59)
[2018-06-13] MEDS ORDERED: METOCLOPRAMIDE 10 MG/2 ML VIAL IVP ONE (09:59)
[2018-06-13] MEDS ORDERED: FAMOTIDINE 20 MG/NACL 50 ML IV ONE (10:15)
[2018-06-13] MEDS: MAGNESIUM HYDROXIDE 30 ML UDCUP PO PRN (10:22)
--- NOTE | 2018-06-13 14:09 | HOSPPROG ---
Hospitalist Progress Note Assessment/Plan: 72yo M status post fall out of a golf cart sustaining traumatic subarachnoid hemorrhage was admitted over the weekend and discharged in good condition. He started to develop more nausea and headache and returned to the emergency department and was found to have a heart rate in the 20s. 1. Headache, nausea: Consistent with post-concussive syndrome. MRI bran unchanged. - Increase fioricet frequency - Add oxycodone PRN, continue morphine IV PRN - Continue phenergan, scop patch - Could consider amitriptyline 2. Symptomatic bradycardia: Leading to syncope and fall/trauma. - s/p pacemaker with Dr Stapleton on 06/12 3. Traumatic subarachnoid hemorrhage: Stable on imaging. Neurosurgery following - PT/OT - f/u with Dr Romero in 4 weeks VTE ppx: SCDs Code: full Dispo: Remain inpatient, symptoms uncontrolled, not tolerating PO. Hopefully dc tomorrow if clinically better Subjective: Still with severe headache. Stabbing in eyes, raditing to top of head and back. Also persistnet nausea. Not vomiting things up. Objective: Vital Signs Temp Pulse Resp BP Pulse Ox 37.4 C 73 14 149/91 H 96 06/13/18 12:00 06/13/18 12:00 06/13/18 12:00 06/13/18 12:00 06/13/18 12:00 06/12/18 06/13/18 06/14/18 05:59 05:59 05:59 Intake Total 1826 Output Total 825 250 Balance 1001 -250 PT 14.4 SEC (12.0-15.0) 06/12/18 06:10 INR 1.10 (0.83-1.16) 06/12/18 06:10 - Physical Exam Constitutional: appears nourished, uncomfortable Eyes: PERRL, anicteric sclera, EOMI Ears, Nose, Mouth, Throat: moist mucous membranes, hearing normal, ears appear normal, no oral mucosal ulcers Cardiovascular: regular rate and rhythym, no murmur, rub, or gallop Respiratory: no respiratory distress, no rales or rhonchi, clear to auscultation Gastrointestinal: normoactive bowel sounds, soft, non-tender abdomen, no palpable masses Genitourinary: no bladder fullness, no bladder tenderness, no renal bruits Skin: no rashes or abrasions, no fluctuance, no induration Musculoskeletal: full muscle strength, no muscle tenderness, normal joint ROM Neurologic: AAOx3, sensation intact bilaterally Psychiatric: interacting appropriately, not anxious, not encephalopathic, thought process linear ICD10 Worksheet Patient Problems: Problems Problem Status Onset Severe headache Acute Primary osteoarthritis of left knee Acute Skull fracture Acute Subarachnoid hemorrhage Acute
[2018-06-13] MEDS: oxyCODONE IR 5 MG TAB PO PRN ×2 (14:32→19:03)
--- NOTE | 2018-06-13 16:40 | PDCARPN ---
Cardiology Progress Note Chief Complaint: Syncope, bradycardia Assessment/Plan: Assessment: Patient has symptomatic sick sinus syndrome with pauses and multiple episodes of confusion and syncope and near syncope. He is now status post MRI conditional pacemaker insertion that is uncomplicated. He will continue to be monitored for his neuro issues and traumatic subarachnoid bleed. Plan:As above. 06/13/18 16:37 Reviewed/Discussed With: family, hospitalist, multidisciplinary team Time Spent with Patient: greater than 25 minutes Time Spent with Patient: Greater than 25 minutes spent on this patients care, greater than 50% of time spent counseling, educating, and coordinating care regarding the above mentioned plan. Objective: Vital Signs (8 Hrs) Temp Pulse Resp BP Pulse Ox 06/13/18 16:00 36.7 C 77 12 157/89 H 96 06/13/18 12:00 37.4 C 73 14 149/91 H 96 Intake/Output (24 Hrs) 06/12/18 06/13/18 06/14/18 05:59 05:59 05:59 Intake Total 1826 Output Total 825 250 Balance 1001 -250 Intake: Oral (ml) 450 IV Infused (ml) 1376 Ns 1,000 ml @ 100 mls/hr 1376 IV CONT FAYE Rx#: [id number] Output: Urine (ml) 825 250 Urinal 825 250 Other: Intake Quantity Yes Sufficient Number of Voids Urinal 1 Result Diagrams: 06/12/18 06:10 06/12/18 06:18 - Physical Exam Constitutional: WDWN, other (complains of headache heart burn and pain as well as nausea.) Eyes: PERRL, EOMI, anicteric sclera Ears, Nose, Mouth, Throat: moist mucous membranes Cardiovascular: regular rate and rhythm, no murmurs, no rubs, no gallops Respiratory: clear to auscultate bilat, no crackles, no wheezes Gastrointestinal: normoactive bowel sounds, no tenderness Skin: no rashes, other (bruising near the pacer insertion site.) Neurologic: AAOx3 Psychiatric: cooperative, interactive, following commands - . Pending Discharge Within 24 Hours: No Pending Discharge Within 48 Hours: Yes ICD10 Worksheet Patient Problems: Problems Problem Status Onset Severe headache Acute Primary osteoarthritis of left knee Acute Skull fracture Acute Subarachnoid hemorrhage Acute
--- NOTE | 2018-06-13 17:28 | ECHO ---
[email or web address] [place] [id number] Main: [phone] Fax: Transthoracic Echocardiogram Name: SANDEEP WEISS MR#: [id number] Study Date: 06/13/2018 Study Time: 09:28 AM Date of : 1945 Age: 72 year(s) Height: 175.3 cm (69 in.) Weight: 76.2 kg (168 lb.) BSA: 1.92 m2 Gender: Male Examination: Echo Indication: Post Pacemaker Image Quality: Contrast: Requested by: Cristian Stapleton BP: 156 mmHg/92 mmHg Heart Rate: Rhythm: Pacemaker rhythm Indication: Post Pacemaker Procedure Staff Order Planner: Ramirez Forbes RDCS Reading Physician: Cristian Stapleton MD Requesting Provider: Conclusions: This was a limitied echo performed to rule out pericarial effusion and to confirm appropriate placement of the RV lead. Final impression: appropriate lead position and no evidene of early complication post pacer insertion. Measurements: Chambers Valvular Assessment AV/MV Valvular Assessment TV/PV Normal Normal Normal Name Value Range Name Value Range Name Value Range Continued Measurements: Findings: Left Ventricle: Normal global systolic LV function. Right Ventricle: There is a a pacemaker in the right venticle. The tip of the lead is oriented towards the septum with no evidence of a perforation or pericardial effusion.. Pericardium: No pericardial effusion. (No Signature Object) Patient: SANDEEP WEISS Study Date: 06/13/2018 Page 1 of 1 09:28 AM [id number]
[2018-06-13] MEDS: SENNOSIDES/DOCUSATE SODIUM TAB PO SCH (19:48)
[2018-06-13] MEDS: POLYETHYLENE GLYCOL 3350 17 GM PKT PO PRN (19:48)
[2018-06-13] MEDS: LORazepam 0.5 MG TAB PO PRN (19:48)
[2018-06-14] MEDS: oxyCODONE IR 5 MG TAB PO PRN ×6 (00:27→22:28)
[2018-06-14] MEDS: ACET/CAFFEINE/BUTA FIORICET 1 EACH TAB PO PRN ×5 (00:27→22:18)
[2018-06-14] MEDS: PROMETHAZINE HCL 25 MG/ML INJ IVP PRN ×4 (00:46→22:28)
--- NOTE | 2018-06-14 06:03 | NEUSURGPN ---
Assessment/Plan: Assessment: 72 yo M sp syncope with traumatic SAH and small bifrontal contusions. neuro: stable, continued post concussive symptoms, no evidence of csf rhinorrhea or otorrhea, headaches and nausea slowly improving, but still severe when recurs. Plan: PT/OT/ST sp pacemaker placement for symptomatic bradycardia ok to switch to po meds no further imaging of brain needed unless condition changes follow up with Dr Romero in 4 weeks, to schedule appointment please call with neuro changes discussed with Dr Castillo NS will SO. Subjective: pt still with headache this am and asking for pain meds, states the nausea is brought on by he headache. overall he is steadily improving. Objective: NAD AAOX3 cnii-xii grossly intact EOMI, PEARLA no facial droop MAEx4, 5/= SILT Neurosurgery Physical Exam - Vitals, I&O, Labs I and O 06/13/18 06/14/18 06/15/18 05:59 05:59 05:59 Intake Total 1826 1958 Output Total 825 500 Balance 1001 1458 Intake: Oral (ml) 450 850 IV Infused (ml) 1376 1108 Ns 1,000 ml @ 100 mls/hr 1376 1108 IV CONT FAYE Rx#: [id number] Output: Urine (ml) 825 500 Urinal 825 500 Other: Intake Quantity Yes Sufficient Number of Voids Toilet 1 Urinal 1 Number of Stools Urinal 0 Vital Signs Temp Pulse Resp BP Pulse Ox 37.2 C 75 18 158/81 H 95 06/14/18 04:00 06/14/18 04:00 06/14/18 04:00 06/14/18 04:00 06/14/18 04:00 ICD10 Worksheet Patient Problems: Problems Problem Status Onset Severe headache Acute Primary osteoarthritis of left knee Acute Skull fracture Acute Subarachnoid hemorrhage Acute
[2018-06-14] MEDS: MAGNESIUM HYDROXIDE 30 ML UDCUP PO PRN (09:07)
[2018-06-14] MEDS: SERTRALINE HCL 100 MG TAB PO SCH (09:07)
[2018-06-14] MEDS: SENNOSIDES/DOCUSATE SODIUM TAB PO SCH ×2 (09:07→22:19)
--- NOTE | 2018-06-14 14:05 | HOSPPROG ---
Hospitalist Progress Note Assessment/Plan: 72yo M status post fall out of a golf cart sustaining traumatic subarachnoid hemorrhage was admitted over the weekend and discharged in good condition. He started to develop more nausea and headache and returned to the emergency department and was found to have a heart rate in the 20s. 1. Headache, nausea: Slowly improving. Consistent with post-concussive syndrome. MRI brain unchanged. - Continue high dose fioricet, oxycodone PRN, scopolamine patch - Try to limit IV therapies (morphine, phenergan) as able 2. Pacemaker generator site bruising, edema - Will have cardiology evaluate 3. Symptomatic bradycardia: Leading to syncope and fall/trauma. - s/p pacemaker with Dr Stapleton on 06/12 4. Traumatic subarachnoid hemorrhage: Stable on imaging. Neurosurgery following - PT/OT - f/u with Dr Romero in 4 weeks VTE ppx: SCDs Code: full Dispo: Remain inpatient, symptoms uncontrolled, not tolerating PO. Hopefully dc tomorrow if clinically better Subjective: Headache and nausea a bit better. Still severe at times. Got up to chair for a few hours and walking around. Pacemaker generator site much more swollen and some bruising Objective: Vital Signs Temp Pulse Resp BP Pulse Ox 37.1 C 73 18 158/85 H 92 06/14/18 11:47 06/14/18 11:47 06/14/18 11:47 06/14/18 11:47 06/14/18 11:47 06/13/18 06/14/18 06/15/18 05:59 05:59 05:59 Intake Total 1826 3208 Output Total 825 500 Balance 1001 2708 PT 14.4 SEC (12.0-15.0) 06/12/18 06:10 INR 1.10 (0.83-1.16) 06/12/18 06:10 - Physical Exam Constitutional: appears nourished, uncomfortable Eyes: PERRL, anicteric sclera, EOMI Ears, Nose, Mouth, Throat: moist mucous membranes, hearing normal, ears appear normal, no oral mucosal ulcers Cardiovascular: regular rate and rhythym, no murmur, rub, or gallop Respiratory: no respiratory distress, no rales or rhonchi, clear to auscultation Gastrointestinal: normoactive bowel sounds, soft, non-tender abdomen, no palpable masses Genitourinary: no bladder fullness, no bladder tenderness, no renal bruits Skin: other (ecchymoses, edema over pacemaker generator site) Musculoskeletal: full muscle strength, no muscle tenderness, normal joint ROM Neurologic: AAOx3, sensation intact bilaterally Psychiatric: interacting appropriately, not anxious, not encephalopathic, thought process linear ICD10 Worksheet Patient Problems: Problems Problem Status Onset Severe headache Acute Primary osteoarthritis of left knee Acute Skull fracture Acute Subarachnoid hemorrhage Acute
[2018-06-14] MEDS: NS 1,000 ML IV SCH (22:18)
[2018-06-14] MEDS: POLYETHYLENE GLYCOL 3350 17 GM PKT PO PRN (22:18)
[2018-06-14] MEDS: ACETAMINOPHEN 325 MG TAB PO PRN (22:19)
[2018-06-14] MEDS: LORazepam 0.5 MG TAB PO PRN (22:27)
[2018-06-15] MEDS: oxyCODONE IR 5 MG TAB PO PRN ×5 (04:15→23:06)
[2018-06-15] MEDS: ACET/CAFFEINE/BUTA FIORICET 1 EACH TAB PO PRN ×4 (04:16→21:54)
[2018-06-15] MEDS: ACETAMINOPHEN 325 MG TAB PO PRN ×2 (04:16→09:10)
[2018-06-15] MEDS: PROMETHAZINE HCL 25 MG/ML INJ IVP PRN (04:17)
[2018-06-15] MEDS ORDERED: PATCH REMOVAL 1 EA PATCH TD SCH (07:50)
[2018-06-15] MEDS ORDERED: PROMETHAZINE HCL 25 MG TAB PO PRN (09:02)
[2018-06-15] MEDS: SENNOSIDES/DOCUSATE SODIUM TAB PO SCH ×2 (09:11→21:54)
[2018-06-15] MEDS: SERTRALINE HCL 100 MG TAB PO SCH (09:11)
[2018-06-15] MEDS: SCOPOLAMINE HYDROBROMIDE 1 MG/3 DAYS PATCH TD SCH (09:45)
--- NOTE | 2018-06-15 12:41 | ASMTCMCOM ---
CM Note CM Note Notes: CM reviewed pts chart. PT is recommending home without any needs. OT is recommending inpatient rehab. CM spoke to Elizabeth Sifuentes with inpatient rehab and reports that pt does not meet level of care. CM available for changes. Plan: Independent Date Signed: 06/15/2018 12:40 PM Electronically Signed By:LIVE Vega
--- NOTE | 2018-06-15 13:55 | ASMTCMCOM ---
CM Note CM Note Notes: This is note for 06-14-2017. Spoke with patient's who would like home health care services which Dr. 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 Rubia states they are interested in [facility] and they were notified to consider for services. Patient was also given the information on Dr. Awilda Pollack , who is a concussion specialist. Spoke with her office to let them know patient has been in the ICU and will be discharging soon and will need follow up care with her. Rubia, patient's will call to get an appointment. CM will follow. Date Signed: 06/15/2018 01:54 PM Electronically Signed By:Kate Hassan LCSW
--- NOTE | 2018-06-15 15:07 | PDCARPN ---
Cardiology Progress Note Chief Complaint: Bradycardia, Syncope and headache Assessment/Plan: Assessment: Patient has symptomatic sick sinus syndrome with pauses and multiple episodes of confusion and syncope and near syncope with associated head trauma and concussion as detailed by neurosurgery. He is now status post MRI conditional pacemaker insertion that is uncomplicated. On exam the incision site from the pacemaker implantation did not show signs of infection. There was mild ecchymosis and bruising on the left side of the patient's chest from the insertion of the pacemaker. There are no early signs of infection. I changed the dressing today. I would like the patient to follow up with my office on @10:00 am for a wound check. Plan:As above 06/15/18 15:41 Reviewed/Discussed With: family, hospitalist, multidisciplinary team Time Spent with Patient: greater than 25 minutes Time Spent with Patient: Greater than 25 minutes spent on this patients care, greater than 50% of time spent counseling, educating, and coordinating care regarding the above mentioned plan. Objective: Vital Signs (8 Hrs) Temp Pulse Resp BP Pulse Ox 06/15/18 12:00 36.8 C 68 18 145/85 H 95 06/15/18 07:56 36.6 C 63 18 118/70 92 Intake/Output (24 Hrs) 06/14/18 06/15/18 06/16/18 05:59 05:59 05:59 Intake Total 3208 1840 Output Total 500 275 Balance 2708 1565 Intake: Oral (ml) 850 1140 IV Infused (ml) 2358 700 Ns 1,000 ml @ 100 mls/hr 2358 700 IV CONT FAYE Rx#: [id number] Output: Urine (ml) 500 275 Urinal 500 275 Other: Number of Voids Toilet 1 1 1 Number of Stools Toilet 1 Urinal 0 Result Diagrams: 06/12/18 06:10 06/12/18 06:18 - Physical Exam Eyes: PERRL, anicteric sclera Ears, Nose, Mouth, Throat: moist mucous membranes Cardiovascular: regular rate and rhythm Respiratory: clear to auscultate bilat Gastrointestinal: normoactive bowel sounds Neurologic: AAOx3, CN II-XII grossly intact Psychiatric: cooperative, interactive - . Pending Discharge Within 24 Hours: Yes ICD10 Worksheet Patient Problems: Problems Problem Status Onset Primary osteoarthritis of left knee Acute Subarachnoid hemorrhage Acute Skull fracture Acute Severe headache Acute Cardiac pacemaker in situ Acute Sick sinus syndrome due to sinoatrial node dysfunction Acute - ICD10 Problem Qualifiers (1) Sick sinus syndrome due to sinoatrial node dysfunction (2) Cardiac pacemaker in situ
[2018-06-15] MEDS ORDERED: KETOROLAC 15 MG/1 ML SDV IVP ONE (15:08)
[2018-06-15] MEDS ORDERED: HALOPERIDOL LACT 5 MG/ML INJ IVP PRN (15:10)
--- NOTE | 2018-06-15 15:15 | HOSPPROG ---
Hospitalist Progress Note Assessment/Plan: 72yo M status post fall out of a golf cart sustaining traumatic subarachnoid hemorrhage was admitted over the weekend and discharged in good condition. He started to develop more nausea and headache and returned to the emergency department and was found to have a heart rate in the 20s. 1. Headache, nausea: Worse today. Consistent with post-concussive syndrome. MRI brain unchanged. - Trial one dose toradol - Switch to compazine - If not better this evening, I have made haldol 1mg IV PRN QHS available - Increased oxycodone to q3h PRN, continue fioricet, scop patch - Will check labs in AM given ongoing symptoms 2. Symptomatic bradycardia: Leading to syncope and fall/trauma. - s/p pacemaker with Dr Stapleton on 06/12 3. Traumatic subarachnoid hemorrhage: Stable on imaging. Neurosurgery following - PT/OT - recommended inpatient rehab vs home health, will continue to follow - f/u with Dr Romero in 4 weeks VTE ppx: SCDs Code: full Dispo: Remain inpatient, symptoms uncontrolled, not tolerating PO. Hopefully dc tomorrow if clinically better Subjective: bad day, worse headache and nausea. worked with pt, who also agreed that he is doing a bit worse today Objective: Vital Signs Temp Pulse Resp BP Pulse Ox 36.8 C 68 18 145/85 H 95 06/15/18 12:00 06/15/18 12:00 06/15/18 12:00 06/15/18 12:00 06/15/18 12:00 06/14/18 06/15/18 06/16/18 05:59 05:59 05:59 Intake Total 3208 1840 Output Total 500 275 Balance 2708 1565 PT 14.4 SEC (12.0-15.0) 06/12/18 06:10 INR 1.10 (0.83-1.16) 06/12/18 06:10 - Physical Exam Constitutional: appears nourished, uncomfortable Eyes: PERRL, anicteric sclera, EOMI Ears, Nose, Mouth, Throat: moist mucous membranes, hearing normal, ears appear normal, no oral mucosal ulcers Cardiovascular: regular rate and rhythym, no murmur, rub, or gallop, No edema Respiratory: no respiratory distress, no rales or rhonchi, clear to auscultation Gastrointestinal: normoactive bowel sounds, soft, non-tender abdomen, no palpable masses Genitourinary: no bladder fullness, no bladder tenderness, no renal bruits Skin: no rashes or abrasions, no fluctuance, no induration Musculoskeletal: full muscle strength, no muscle tenderness, normal joint ROM Neurologic: AAOx3, sensation intact bilaterally Psychiatric: interacting appropriately ICD10 Worksheet Patient Problems: Problems Problem Status Onset Severe headache Acute Primary osteoarthritis of left knee Acute Skull fracture Acute Subarachnoid hemorrhage Acute
[2018-06-15] MEDS: PROCHLORPERAZINE MALEATE 10 MG TAB PO PRN ×2 (15:52→21:54)
[2018-06-15] MEDS: NS 1,000 ML IV SCH (16:43)
[2018-06-16] MEDS: ACET/CAFFEINE/BUTA FIORICET 1 EACH TAB PO PRN ×2 (01:56→08:28)
[2018-06-16] MEDS ORDERED: NS 1,000 ML IV ONE (02:21)
[2018-06-16] MEDS ORDERED: ACETAMINOPHEN 500 MG TAB PO ONE (02:22)
[2018-06-16 07:23] VITALS: BP 149/92
[2018-06-16] MEDS: SERTRALINE HCL 100 MG TAB PO SCH (08:29)
[2018-06-16] MEDS: SENNOSIDES/DOCUSATE SODIUM TAB PO SCH (08:29)
[2018-06-16] MEDS: oxyCODONE IR 5 MG TAB PO PRN (08:29)
[2018-06-16] MEDS: PROCHLORPERAZINE MALEATE 10 MG TAB PO PRN (09:28)
--- NOTE | 2018-06-16 10:06 | PDIAF ---
- Diagnosis Code Status: Full Code - Medication Management Additional Medication Instructions: See instructions below. Discharge Medications: electronically signed and located in the Home Medication List. PICC Care - Routine: N/A - Orders Services needed: Home Care, Physical Therapy, Occupational Therapy Home Care Face to Face: I certify that this patient was under my care and that I had the required [id number] encounter meeting the encounter requirements on the discharge day. My findings support the fact that the patient is homebound as defined in Home Care Face to Face Continued: CMS Chapter 7 Medicare Benefits Manual 30.1.1 , The condition of the patient is such that there exists a normal inability to leave home and consequently, leaving home would require a considerable and taxing effort. Diet Recommendation: no restrictions on diet Diet Texture: Regular Texture Diet Activity/Weight Bearing Restrictions: Please follow the cardiology team restrictions for pacemaker placement on your left arm. Additional Instructions: I sent prescriptions for the following to your pharmacy: 1. Fioricet. Take 1 tab every 6 hours as needed for headache relief. 2. Oxycodone. Unfortunately, I couldn't order 10mg tablets so I sent 5mg tabs. Take 10mg (2 tabs) as needed for pain/headache every 4 hours for 2 days, then every 6 hours for 2 days, then every 8 hours for 2 days, then every 12 hours, then stop. 3. Compazine. You can take 10mg up to every 6 hours for nausea. 4. Scopolamine patch. You can replace this every 72 hours (was put on 06/15) to help with nausea as needed. I have discontinued your xanax, phenergan, and ambien. I do not want you taking these with the above medications. I encourage you not to drive or do vigorous exercise. Also refrain from drinking alcohol or smoking marijuana. I also recommend limiting any screen time and reading as much as possible, preferrably less than 1 hour/day. Follow up with Dr Romero in 4 weeks, to schedule appointment. Follow up with Dr. Stapleton on scheduled appointment dated 06/22/18 @ 10:00AM Follow up with for concussion follow-up next Monday. Follow up with Dr Fraser in 2-3 weeks. Lastly, we are setting up home health physical and occupational therapy for you. - Follow Up Care Current Providers and Referrals: Cristian Stapleton MD [Medical Doctor] - Angella Fraser MD [Primary Care Provider] - As per Instructions Ralph Romero MD [Medical Doctor] - Awilda Pollack MD [Medical Doctor] -
--- NOTE | 2018-06-16 10:06 | PDDCSUM ---
Discharge Summary Discharge Summary: Date of Admission: 06/11/2018 Date of Discharge: 06/16/2018 Consultants: neurosurgery, cardiology Procedures: Dual chamber pacemaker insertion (Dr Stapleton) Studies: brain MRI, TTE, CXR Discharge Diagnoses: 1. Symptomatic bradycardia and sinus pauses 2/2 sick sinus syndrome s/p pacemaker placement 2. Post-concussive syndrome 3. Recent syncope and fall, resulting in 4. Bilateral subarachnoid hemorrhages 5. Nondisplaced skull fracture (left temporal bone, skull base extending superiorly to parietal bone) 6. Right arm injury (partial tear of common flexor tendon at elbow, likely rotator cuff injury) 7. Elevated BP Brief Hospital Course: 72yo relatively healthy M presented to the hospital with uncontrolled headaches and nausea. He was just hospitalized after a syncopal episode with subsequent fall and was found to have small bilateral subarachnoid hemorrhages; no neurosurgical intervention was necessary at that time. He was discharged 2 days prior and returned with the aforementioned symptoms. Interestingly, he was found to be profoundly bradycardic with sinus pauses. He was emergently taken for pacemaker placement. It was felt that his syncope/fall were related to sick sinus syndrome. His hospitalization was prolonged due to uncontrolled headaches and nausea. A repeat brain MRI was obtained which was unchanged. Neurosurgery was consulted. His symptoms were felt to be due to post-concussive syndrome. His symptoms were finally controlled and he was discharged home with medications to treat this. He was set up with home health PT and OT. Medications: Please refer to EMR for complete list. I wrote prescriptions for the followin. Fioricet 1 tab q6h PRN 2. Oxycodone 5mg tabs with plan to taper over the next 7 days 3. Compazine 10mg q6h PRN 4. Scopolamine patch Follow Up Plan: 1. Has appointment with concussion specialist Dr Awilda Pollack next Monday 2. To see PCP in 1-2 weeks 3. Cardiology f/u with Dr Stapleton on 06/22. Typical activity restrictions after pacemaker placement were reviewed with the patient. 4. Neurosurgery follow up with Dr Romero in 4 weeks 5. Monitor BP, institute anti-hypertensives if necessary Physical Exam: Vitals and telemetry reviewed. Alert and oriented, no focal neurologic deficits, RRR without m/r/g, lungs clear, abdomen soft and nt, no rashes, no edema, pacemaker generator site healing well with no signs of bleeding or infection.
--- NOTE | 2018-06-16 14:03 | ASMTDCNOTE ---
Case Management Discharge Discharge Order Complete? Answers: Yes Patient to Obtain Answers: via Family Medications Transportation Arranged Answers: Family/Friends Faxed Final Orders Answers: Yes Notes: to hc Agency/Facility Transfer Answers: Yes Notes: to [facility] Report Printed & Faxed to Receiving Agency Discharge Comments Notes: 06/16/2018 Case Management Note Pt discharging with [facility]. Notified via phone. Faxed final orders. Date Signed: 06/16/2018 02:02 PM Electronically Signed By:Lita Ellis RN
--- NOTE | 2018-06-16 14:04 | ASDISCHSUM ---
Discharge Information Plan Status:Home with Home Health Medically Cleared to Leave:06/15/2018 Discharge Date:06/16/2018 12:00 PM CM D/C Disposition:Home Health Service ADT D/C Disposition:Home Health Service Projected Discharge Date:06/16/2018 11:00 AM Transportation at D/C:Family Discharge Delay Reason: Follow-Up Date:06/16/2018 11:00 AM Discharge Slot: Final Diagnosis: Placement Information Referral Type:*Home Health Care Services Referral ID:[id number] Provider Name:[facility] Address 1:[address] [place] [address] Address 2: City:[place] Selection Factors: State:[place] Patient Contact Information Contact Name:ARBEN Relationship: Address:[address] City:[place] Alternate Phone: State/Zip Code:[place] [address] Email: Financial Information Financial Class:Medicare Primary Plan Desc:MEDICARE INPATIENT Primary Plan Number:[id number] Secondary Plan Desc:[employer] INDEMNITY Secondary Plan Number:[id number] Assessment Information LACE LACE Length of stay for Answers: 4-6 days current admission Acuity / Level of Answers: Yes Care: Did the patient have an inpatient admission? Comorbidities - select Answers: Other Notes: Recent skull fx all that apply # of Emergency department Answers: 1-2 visits in the last 6 months Social determinants Answers: Mental health diagnosis (anxiety, depression, pers onality disorders, etc.) Score: 12 Date Signed: 06/16/2018 02:03 PM Electronically Signed By:Lita Ellis RN [facility] Initial CM Assessment Living Arrangements What is your living Answers: With Spouse arrangement? Who do you live with? Type Of Residence What kind of residence do Answers: House you live in? Discharge Plan Comments Coordination Status Comments Notes: Patient is a 72yo male who was recently admitted to [facility] for a left skull based fracture. He was discharged on 06/09/18 but over the past 48 hours he developed significant headache with nausea. Patient is being admitted for telemetry monitoring and further care. MEDICAL REVIEW COORDINATOR flori has been ordered. D/C plan TBD. Likely, patient will discharge independently. CM will follow. Date Signed: 06/12/2018 04:31 PM Electronically Signed By:Kate Hassan LCSW [facility] CM Progress Note CM Note CM Note Notes: CM reviewed pts chart. PT is recommending home without any needs. OT is recommending inpatient rehab. CM spoke to Elizabeth Sifuentes with inpatient rehab and reports that pt does not meet level of care. CM available for changes. Plan: Independent Date Signed: 06/15/2018 12:40 PM Electronically Signed By:LIVE Vega [facility] CM Progress Note CM Note CM Note Notes: This is note for 06-14-2017. Spoke with patient's who would like home health care services which Dr. Dye is fine with them having OT/PT/MEDICAL REVIEW COORDINATOR. Rubia states they are interested in [facility] Home Health Care and they were notified to consider for services. Patient was also given the information on Dr. Awilda Pollack , who is a concussion specialist. Spoke with her office to let them know patient has been in the ICU and will be discharging soon and will need follow up care with her. Rubia, patient's will call to get an appointment. CM will follow. Date Signed: 06/15/2018 01:54 PM Electronically Signed By:Kate Hassan LCSW Case Management Discharge Plan Note Case Management Discharge Discharge Order Complete? Answers: Yes Patient to Obtain Answers: via Family Medications Transportation Arranged Answers: Family/Friends Faxed Final Orders Answers: Yes Notes: to [facility] Agency/Facility Transfer Answers: Yes Notes: to [facility] Report Printed & Faxed to Receiving Agency Discharge Comments Notes: 06/16/2018 Case Management Note [facility]. Notified via phone. Faxed final orders. Date Signed: 06/16/2018 02:02 PM Electronically Signed By:Lita Ellis RN Intervention Information Intervention Type:*CYDNEY-Signed Date of Service:06/12/2018 03:32 PM Patient Type:Observation Staff Member:Jaki Meade Hours: Discipline: Severity: Comment:
== END 2018-06-16 12:00 | disposition home health service (06) | DRG 242 ==
LOC: F3N 14:03 → F2N 06-12 00:26 → OBSVTOIN 06-12 17:04 → F2N 06-12 19:31 → F2W 06-14 16:36
PROVIDERS: ADMIT Internal Medicine; ATTEND Internal Medicine
PROC: 02H63JZ Insertion of Pacemaker Lead into Right Atrium, Percutaneous Approach (ICD-10-PCS; principal; 2018-06-12)
PROC: 02HK3JZ Insertion of Pacemaker Lead into Right Ventricle, Percutaneous Approach (ICD-10-PCS; principal; 2018-06-12)
PROC: 0JH606Z Insertion of Pacemaker, Dual Chamber into Chest Subcutaneous Tissue and Fascia, Open Approach (ICD-10-PCS; principal; 2018-06-12)
DX: I49.5 Sick sinus syndrome (principal); F07.81 Postconcussional syndrome; E86.0 Dehydration; S06.6X9A Traumatic subarachnoid hemorrhage with loss of consciousness of unspecified duration, initial encounter; S02.91XA Unspecified fracture of skull, initial encounter for closed fracture; Y92.39 Other specified sports and athletic area as the place of occurrence of the external cause; Y92.481 Parking lot as the place of occurrence of the external cause; V86.59XD Driver of other special all-terrain or other off-road motor vehicle injured in nontraffic accident, subsequent encounter; Z96.652 Presence of left artificial knee joint; F17.210 Nicotine dependence, cigarettes, uncomplicated
CPT/HCPCS: 92523-GN; 96374; 97116-GP; 97161-GP; 97166-GO; 97535-GO; C1785; C1898; G0378; J0690; J1170; J1200; J1885; J2250; J2270; J2405; J2550; J2765; J3010; Q9967

== ENCOUNTER 2018-10-16 05:42 | Observation (INO) | payer OTHER ==
--- NOTE | 2018-10-04 15:20 | GHP ---
[f rep st] PREOP HISTORY AND PHYSICAL He will be an a.m. admission for surgery on October 16, 2018. PROBLEM: Right shoulder large rotator cuff tear. HISTORY OF PRESENT ILLNESS: The patient is a 73-year-old man admitted for a right shoulder partial acromionectomy and rotator cuff repair. In May, he experienced a syncopal episode when getting out of a golf cart. He was hospitalized at [facility] for a closed head injury and evaluation of the syncope. He was found to have bradycardia. In May of this year, he had a pacemaker inserted. He also injured his right shoulder in the same accident. He has had some mild previous right shoulder problems. However, the shoulder has been much more painful and weaker since the May accident. He had an MRI, which shows a complete tear of the supraspinatus tendon with retraction without muscle atrophy. He also has a complete tear of the infraspinatus tendon with retraction and without muscle atrophy. Partial tear of the superior portion of the subscapularis. He has subluxation of the long head of the biceps. There was some fraying and degeneration of the glenoid labrum, and also AC joint arthritis. He has tried nonsurgical care including physical therapy. He is admitted now for an attempt at rotator cuff repair. He might also need a tenodesis of the long head of the biceps tendon. PAST MEDICAL HISTORY: Other than the pacemaker, he has been in good general health. He has sleep apnea. He uses a mouth guard. CURRENT MEDICATIONS: None. ALLERGIES: Sulfa causes throat swelling. SOCIAL HISTORY: The patient is . He is retired. He does not smoke cigarettes. He occasionally drinks alcohol. FAMILY HISTORY: Positive for cancer. PHYSICAL EXAMINATION: GENERAL: He is an alert, healthy-appearing man. Height 5 feet 11 inches. Weight 175 pounds. BMI 25.1. EYES: Conjunctivae and sclerae are clear. Pupils are round and reactive. MOUTH: Good oral hygiene. No loose teeth. CHEST: Clear. HEART: Regular rhythm, no murmurs. EXTREMITIES: Pertinent findings limited to his right shoulder. He has 160 degrees of abduction and forward flexion. The long head of the biceps is intact. IMPRESSION: 1. Right shoulder large rotator cuff tear with retraction. 2. Pacemaker for bradycardia. 3. Closed head injury in May of 2018. 4. Sleep apnea. PLAN: He will undergo a right shoulder open rotator cuff repair and partial acromionectomy. He may also need a biceps tenodesis. The surgery has been described to him, including the risks, complications, expectations, and recovery time. I have discussed with him the use of an abduction pillow for 3 or 4 weeks after surgery. The need for extensive physical therapy has been described. I have also advised him that there is a small possibility that the tear could be so large that it irreparable. All his questions have been answered, and he consents to surgery. Copy requested to: Dr. Nadeem Hannah #: [id number]
[2018-10-16] MEDS ORDERED: TRANEXAMIC ACID 3,000 MG in NS (SYRINGE) 50 ML IRR ONE (06:00)
[2018-10-16] MEDS ORDERED: ROPIVACAINE 0.2% 80 MG, EPINEPHrine 0.2 MG, KETOROLAC TROMETHAMINE 30 MG in SYRINGE 0 ML IU ONE (06:00)
[2018-10-16] MEDS ORDERED: LR 1,000 ML IV SCH (06:02)
[2018-10-16] MEDS ORDERED: ceFAZolin 2 GM/DEXTROSE 100 ML IV ONE (06:02)
[2018-10-16] MEDS ORDERED: PREGABALIN 150 MG CAP PO ONE (06:02)
[2018-10-16] MEDS ORDERED: ACETAMINOPHEN 500 MG TAB PO ONE (06:02)
[2018-10-16] MEDS ORDERED: LR 1,000 ML IV ONE (06:03)
[2018-10-16] MEDS ORDERED: MIDAZOLAM 2 MG/2 ML VIAL IVP ONE (06:54)
[2018-10-16] MEDS ORDERED: BUPIVACAINE/EPI 0.5% 30 ML SDV ONE (06:55)
--- NOTE | 2018-10-16 06:55 | PDANEPAE ---
ANE History of Present Illness 73 yo for rtc repair ANE Past Medical History - Cardiovascular History Hx Hypertension: No Hx Arrhythmias: No Hx Chest Pain: No Hx Coronary Artery / Peripheral Vascular Disease: No Hx CHF / Valvular Disease: No Hx Palpitations: No Cardiovascular History Comment: SINUS BRADYCARDIA. PACEMAKER PLACED 09/11/18 - Pulmonary History Hx COPD: No Hx Asthma/Reactive Airway Disease: No Hx Recent Upper Respiratory Infection: No Hx Oxygen in Use at Home: No Hx Sleep Apnea: Yes Sleep Apnea Screening Result - Last Documented: Positive Pulmonary History Comment: LOLA, NO CPAP UNABLE TO TOLERATE - Neurologic History Hx Cerebrovascular Accident: No Hx Seizures: No Hx Dementia: No Neurologic History Comment: SUFFERED SUBARACHNOID HEMORRHAGE 05/2018 NO RESIDUAL ISSUES - Endocrine History Hx Diabetes: No - Renal History Hx Renal Disorders: No - Liver History Hx Hepatic Disorders: No Hepatic History Comment: CHOLECYSTECTOMY - Neurological & Psychiatric Hx Hx Neurological and Psychiatric Disorders: No Neurological / Psychiatric History Comment: DEPRESSION - Cancer History Hx Cancer: No - Congenital Disorder History Hx Congenital Disorders: No - GI History Hx Gastrointestinal Disorders: No - Other Health History Other Health History: RT SHLDR FELL ON IT 05/2018 RESULTING IN RTC TEAR - Chronic Pain History Chronic Pain: Yes (RT SHLDR) - Surgical History Prior Surgeries: PACEMAKER 06/08/18. LT TOTAL KNEE. URETEROSCOPY WITH STENT 2011. CHOLECYSTECTOMY 1994 ANE Review of Systems Review of Systems: - Exercise capacity METS (RN): 5 METS - Pacemaker Pacemaker Type: Permanent Pacer/Defib Pacemaker Therapist: [employer] Date Pacemaker Last Checked: 09/11/18 ANE Patient History - Allergies Allergies/Adverse Reactions: Sulfa (Sulfonamide Antibiotics) Allergy (Severe, Verified 06/11/18 09:57) Swelling/neck,face,throat - Home Medications Home medications: home medication list seen and reviewed Home Medications: Sertraline HCl [Zoloft 100mg (*)] 100 mg PO DAILY 06/11/18 [Last Taken 06/10/18] - NPO status NPO Status: no food or drink >8 hours NPO Since - Liquids (Date): 10/15/18 NPO Since - Liquids (Time): 20:00 NPO Since - Solids (Date): 10/15/18 NPO Since - Solids (Time): 20:00 - Anes Hx Anes Hx: no prior problems - Smoking Hx Smoking Status: Former smoker - Family Anes Hx Family Hx Anesthesia Complications: NONE ANE Labs/Vital Signs - Vital Signs Blood Pressure: 138/76 Heart Rate: 63 Respiratory Rate: 16 O2 Sat (%): 93 Height: 5 ft 9 in Weight: 77.111 kg ANE Physical Exam - Airway Neck exam: FROM Mallampati Score: Class 2 Mouth exam: normal dental/mouth exam - Pulmonary Pulmonary: no respiratory distress - Cardiovascular Cardiovascular: regular rate and rhythym - ASA Status ASA Status: II ANE Anesthesia Plan Anesthesia Plan: GA w LMA Regional Anesthesia: single shot NB
--- NOTE | 2018-10-16 07:00 | PDHPUP ---
History & Physical Update H&P update statement: This history and physical update is based on an assessment of the patient which was completed after admission or registration (within 24 hours), but prior to the surgery/procedure. H&P update: H&P reviewed & patient examined
[2018-10-16] MEDS ORDERED: fentaNYL 250 MCG/5 ML INJ ONE (07:03)
[2018-10-16] MEDS ORDERED: PROPOFOL/EMULSION 500 MG/50 ML BOTTLE IV ONE (07:04)
[2018-10-16] MEDS ORDERED: PROPOFOL 200 MG/20 ML VIAL ONE (08:34)
[2018-10-16] MEDS ORDERED: ONDANSETRON 4 MG/2 ML VIAL ONE (08:36)
[2018-10-16] MEDS ORDERED: KETOROLAC 30 MG/1 ML SDV ONE (08:36)
[2018-10-16] MEDS ORDERED: SUGAMMADEX SODIUM 200 MG/2 ML VIAL IVP ONE (08:37)
[2018-10-16] MEDS ORDERED: HYDROmorphONE/DILAUDID 1 MG/ML INJ IVP PRN ×2 (08:41→08:52)
[2018-10-16] MEDS ORDERED: oxyCODONE IR 5 MG TAB PO PRN ×2 (08:41→08:52)
[2018-10-16] MEDS ORDERED: fentaNYL 100 MCG/2 ML INJ IVP PRN (08:41)
[2018-10-16] MEDS ORDERED: ALBUTEROL 3 ML DEYVIAL IH PRN (08:41)
[2018-10-16] MEDS ORDERED: NALOXONE HCL 0.4 MG/ML INJ IVP PRN (08:41)
[2018-10-16] MEDS ORDERED: ONDANSETRON 4 MG/2 ML VIAL IVP PRN ×2 (08:41→08:52)
[2018-10-16] MEDS ORDERED: ACETAMINOPHEN 325 MG TAB PO PRN (08:52)
--- NOTE | 2018-10-16 08:52 | POSTOPPROG ---
Post Op Note Date of Operation: 10/16/18 Surgeon: [place] Richard Bank President: Nereida Anesthesiologist: Elle Anesthesia: GET(General Endotracheal) Post-op Diagnosis: Right shoulder complete rotator cuff tear Procedure: Right shoulder partial acromionectomy an open rotator cuff repair Inf/Abcess present in the surg proc area at time of surgery?: No EBL: 100-500
--- NOTE | 2018-10-16 09:46 | GOP ---
[f rep st] OPERATIVE REPORT DATE OF OPERATION: 10/16/2018 SURGEON: Berlin Richard MD CORPORATE SCHEDULER: 1. Michael Hernandez. 2. Ch[place] Esteves. ANESTHESIA: General anesthesia and an interscalene nerve block by Dr. Almeida. PREOPERATIVE DIAGNOSIS: Right shoulder complete rotator cuff tear. POSTOPERATIVE DIAGNOSIS: Same. PROCEDURE PERFORMED: 10/16/2018: Right shoulder partial acromionectomy and open rotator cuff repair . FINDINGS: ESTIMATED BLOOD LOSS: Estimated blood loss was about 100 cc. DESCRIPTION OF PROCEDURE: The patient was given 2 g of IV Ancef preoperatively within 60 minutes of surgery. He was placed supine on the operating room table, and Dr. Almeida administered an intersca puja nerve block to the right shoulder. He was then given general anesthesia. Dr. Almeida started with an LMA. However, he had difficulty maintaining the airway, and he switched him to endotracheal general anesthesia. He was positioned in a beach chair semi-sitting position. His right shoulder was partially extended over the edge of the operating room table. All pressure points were carefully padded. His right lowell ulder and right upper extremity were prepped with ChloraPrep from the shoulder to the tips of the fin gers. It was draped free using sterile sheets, towels, stockinette, and Ioban plastic drape. The [employer] time-out was performed to verify the correct patient identity and the c orrect surgical side and site. I made a 2 inch straight anterolateral incision on his right shoulder. I started over the top of the acromion and extended distally and slightly laterally. Subcutaneous tissues were sharply divided, a nd hemostasis was obtained using electrocautery. I pre-injected the skin and subcutaneous tissues wi th 0.5% Marcaine for a volume of 5 cc. Subcutaneous tissues were sharply divided, and hemostasis was obtained using electrocautery. The deltoid muscle origin on the acromion was identified. I dissect ed a portion of the deltoid origin off the anterolateral surface of the acromion with subperiosteal d issection. I made a vertical split along the axis of the deltoid muscle fibers and created a T-shape d opening. He had a complete rotator cuff tear. The gap measured approximately 2 cm x 2 cm. A retr actor was inserted to depress the humeral head. I then used the power oscillating saw to perform my acromionectomy. I removed enough bone from the acromion to adequately decompress the subacromial spa ce. His biceps tendon was inspected. Overall it was quite healthy. It had a little longitudinal splitti ng, but no tearing or significant degeneration. It was sitting in the biceps groove. I did not thin k a tenodesis was necessary. I then placed a 0 Mersilene suture in the torn end of the supraspinatus. This allowed me to mobilize the tendon and estimate where and how it should be reattached to the greater tuberosity. I used the power bur to roughen the intended attachment site and create a small notch in the greater trochanter . I then used a curved tech to drill 3 holes through the greater tuberosity. Two #2 FiberWire sutur es were placed through the torn end of the supraspinatus and the anterior portion of the infraspinatu s in a modified [place] type stitch. These sutures were then passed through the drill holes in the g reater tuberosity. Posteriorly, some of the infraspinatus was still intact. I freshened the edges and inserted 2 figure -of-eight #2 FiberWire sutures as a [id number] repair. Two additional simple sutures were placed in the supraspinatus and passed out through the drill holes in the greater tuberosity. His arm was abducted. All of the sutures were tied. This pulled his supraspinatus and infraspinatus back into their normal positions. It was a snug repair without excessive tension on the repair site . I could carefully lower his arm to his side without stretching the repair. The wound was thoroughly irrigated with saline. The deltoid muscle and the subcutaneous tissues arou nd the skin edges were infiltrated with 20 cc of 0.5% Marcaine with epinephrine. The deltoid was rep aired back to the acromion using #2 FiberWire sutures through drill holes in the rim of the acromion. This provided a strong stable deltoid repair. Subcutaneous tissues were closed with interrupted 3-0 Vicryl sutures. The skin was closed with a run yomaira 4-0 Monocryl subcuticular suture. The skin edges were reapproximated and sealed with glue. The wound was covered with a small Tegaderm waterproof dressing. He was immobilized in a shoulder immobilizer with a triangular wedge pillow. He was awakened from anesthesia, transferred to his gurney, and taken to PACU in satisfactory conditi on. COUNTS: The sponge and needle counts were correct on 2 occasions. Michael eHrnandez and Chico Esteves acted as surgical assistants. Their assistance was a medical necess ity for safe completion of the procedure. /[id number]/MODL
--- NOTE | 2018-10-16 11:53 | SOAPPROG ---
[facility] Progress Note Assessment/Plan: Assessment: 73 year old male with history of syncopal episode - diagnosed with bradycardia and pacemaker implanted May 2018 Right shoulder complete rotator cuff tear, AC joint DJD s/p right shoulder partial acromionectomy and open rotator cuff repair - procedure earlier this morning Plan: Begin d/c planning - likely home tomorrow; will have outpatient PT Continue VTE ppx - SCDs,YAIMA hose Continue to wear sling/abduction pillow at all times, but can remove to perform elbow ROM Continue oral pain medication Subjective: Patient states he feels very good at this time, there is no pain in the shoulder. He had an interscalene block. States he is unable to move his fingers at this time. Patient denies SOB, CP, fever, chills. Objective: Vital Signs Temp Pulse Resp BP Pulse Ox 35.7 C L 62 16 115/76 94 10/16/18 11:00 10/16/18 11:00 10/16/18 11:00 10/16/18 11:00 10/16/18 11:00 10/15/18 10/16/18 10/17/18 05:59 05:59 05:59 Intake Total 1530 Balance 1530 Patient resting comfortably in bed, no acute distress, he appears a bit drowsy. RUE: Sling with abduction pillow is in place. Wound dressing is clean, dry and intact. Upper arm and forearm compartments are soft and nontender. He is unable to actively move the right wrist or fingers at this time secondary to interscalene block. Fingers are warm and pink in coloration. Reports he cannot feel me touching his fingers, hand or forearm. ICD10 Worksheet Patient Problems: Problems Problem Status Onset Complete rotator cuff tear or rupture of right shoulder, not specified as traumatic Acute Cardiac pacemaker in situ Acute Primary osteoarthritis of left knee Acute Severe headache Acute Sick sinus syndrome due to sinoatrial node dysfunction Acute Skull fracture Acute Subarachnoid hemorrhage Acute
[2018-10-16 13:01] VITALS: BP 124/78
--- NOTE | 2018-10-16 13:55 | PDDCSUM ---
Discharge Summary Discharge Summary: ADMISSION DIAGNOSIS: Right shoulder complete rotator cuff repair, AC joint osteoarthritis DISCHARGE DIAGNOSIS: Right shoulder complete rotator cuff repair, AC joint osteoarthritis OPERATION PERFORMED: (October 16, 2018) Right shoulder partial acromionectomy and open rotator cuff repair POSTOPERATIVE COMPLICATIONS: None CONDITION ON DISCHARGE: Improved HPI: Thom is a 73 year old male who experienced a syncopal episode when getting out of a golf cart in May 2018. He was hospitalized at [facility] for a closed head injury and evaluation of syncope. He was diagnosed with bradycardia. Patient had a pacemaker placed in May 2018. He was having mild right shoulder problems prior to this injury, but the pain significantly worsened after the syncopal episode/fall. He had a MRI that revealed complete tear of the supraspinatus and infraspinatus tendons with retraction but without muscle atrophy, medial subluxation of the long head of the biceps tendon and AC joint osteoarthritis. He exhausted conservative measures including PT and he elected to proceed with right rotator cuff repair, partial acromionectomy and possible long head biceps tenodesis. HOSPITAL COURSE: Patient was admitted to the hospital on the morning of surgery and under general anesthesia and an interscalene nerve block patient had a right shoulder partial acromionectomy and open rotator cuff repair. The long head of the biceps tendon had a little longitudinal splitting, but otherwise it was in good condition and biceps tenodesis was not performed. He was transferred to the PACU and then orthopedic floor. Post-operatively he was afebrile with stable vital signs. His neurovascular status and vital signs were monitored. He wore a sling with abduction pillow at all other times. He was treated with SCDs and YAIMA hose for VTE prophylaxis. On the day of discharge he is afebrile with stable vital signs. Wound dressings are clean, dry and intact. Upper arm and forearm compartments are soft and nontender. He is unable actively flex and extend the elbow, wrist and fingers secondary to the interscalene nerve block. Altered sensation (tingling) distally in fingers. Fingers are warm and pink. Capillary refill < 2 seconds in all fingers. Palpable radial pulse. He will be discharged home in stable condition. DISPOSITION: Patient will continue to wear the sling and abduction pillow at all times except to perform elbow ROM and take a shower (during which he will place volleyball or soccer ball between the right upper arm and torso to maintain adequate abduction). Outpatient PT will be arranged several weeks after surgery. Patient has a prescription for oxycodone at home. He is to keep the wound dressings clean, dry and in place. He will follow up with Dr. Richard on October 25, 2018. If there are any problems, patient is to call Dr. Richard at the office.
--- NOTE | 2018-10-18 08:53 | POSTANESTH ---
Post Anesthetic Evaluation Cardiovascular Status: Normal, Stable Respiratory Status: Normal, Stable Level of Consciousness/Mental Status: Can Participate in Eval Pain Control: Adequate, Prn Tx Ordered Nausea/Vomiting Control: Adequate, Prn Tx Ordered Complications Possibly Related to Anesthesia: None Noted
== END 2018-10-16 14:30 | disposition home or self-care (01) ==
LOC: FSGY 05:42 → F3E 08:53 → F3N 10:06
PROVIDERS: ADMIT Physician Assistant; ATTEND Orthopaedic Surgery
DX: S46.011D Strain of muscle(s) and tendon(s) of the rotator cuff of right shoulder, subsequent encounter (principal); V86.59XD Driver of other special all-terrain or other off-road motor vehicle injured in nontraffic accident, subsequent encounter; G47.33 Obstructive sleep apnea (adult) (pediatric); F32.9 Major depressive disorder, single episode, unspecified; Z87.891 Personal history of nicotine dependence; Z96.652 Presence of left artificial knee joint; Z95.0 Presence of cardiac pacemaker; Z88.2 Allergy status to sulfonamides
CPT/HCPCS: 23420; J0690; J1885; J2250; J2405; J2704; J3010